=== PATIENT | female | born 1965 | race Caucasian/White ===

== ENCOUNTER 2018-01-04 15:19 | Emergency (ER) | payer MEDICAID, SELFPAY ==
[2018-01-04 15:20] VITALS: BP 101/66; PULSE 62; RESP 18; TEMP 36.9; O2SAT 99; BMI 22.3
[2018-01-04 15:51] LABS: Bacteria 0 SEEN /hpf (None Seen); Mucous, Urine 0 SEEN /hpf (<or=2+); White Blood Cells 0 SEEN /hpf (0-5)
[2018-01-04 15:59] LABS: Color, Urine Yellow (Yellow); Glucose, Dipstick Normal (Normal); Ketone-Dipstick Negative (Negative); Leukocyte Esterase-Dipstick Negative /ul (Negative); Nitrite-Dipstick Negative (Negative); Occult Blood-Urine Negative /ul (Negative); Protein-Dipstick Negative (Negative); Urine Bilirubin Dipstick Negative (Negative); Urine Clarity Clear (Clear); Urine Urobilinogen 1 mg/dl (Normal)
[2018-01-04 16:18] LABS: Red Blood Cells-Urine 0-5 SEEN /hpf (0-5); Squamous Epithelial Cells - UA 0-5 SEEN /hpf (5-10)
--- NOTE | 2018-01-04 16:59 | CT_ITS ---
STUDY: CT ABDOMEN AND PELVIS WITHOUT CONTRAST REASON FOR EXAM: Female, 52 years old. Kidney stones, low back pain, increased urinary frequency. RADIATION DOSAGE (If Supplied By Facility): CTDIvol = ( 6.04 ) mGy, DLP = ( 271.8 ) mGycm TECHNIQUE: Transaxial images were obtained from the dome of the diaphragm to the symphysis pubis without oral contrast, and without intravenous contrast. Sagittal and coronal images were reconstructed. Individualized dose optimization techniques were used for this CT. COMPARISON: None. FINDINGS: Curvilinear scarring in the left lung base. The visualized portions of the heart are within normal limits. Stable well-defined 1.6 x 1.3 x 1.45 cm low-density consistent with a cyst in the anterior left lobe of the liver. 1.6 cm subcapsular hemangioma in the inferior right lobe liver is only faintly visualized on series 2 image 56. The portal vein diameter is 13.5 mm. The gallbladder is contracted. Normal spleen. Normal pancreas. Normal bilateral adrenal glands. Normal right kidney. Normal left kidney. No hydronephrosis. Normal visualized stomach. Normal small intestine. Normal colon. The appendix is visualized and appears normal. Normal abdominal aorta. Normal inferior vena cava. Normal retroperitoneum. Normal urinary bladder. There is absence of the uterus consistent with a prior hysterectomy. Grossly unremarkable adnexa. Normal abdominal wall. There is right-sided depression of superior L1 vertebral endplate, new since prior study. Mild L5-S1 degenerative disc disease and disc height narrowing unchanged. CT/Abdomen/Pelvis without Cont IMPRESSION: 1. Stable right hepatic subcapsular hemangioma and left hepatic cyst. 2. The bowel is unremarkable without signs of obstruction. The appendix is normal. 3. Prior hysterectomy. The visualized adnexa are grossly unremarkable. 4. No hydronephrosis. 5. Right-sided depression of the superior L1 vertebral endplate, new since previous exam. Electronically Signed: Chip Navas MD at 17:39 EST , Service support ,
--- NOTE | 2018-01-04 17:47 | ED.DCSUM_ITS ---
- ER Visit Summary Date of Service: 01/04/18 Chief Complaint: Flank pain History of Present Illness: The patient is a 52 F who notes a backache for the past week. She also notes some bladder spasms. She notes urinary frequency and a odor to her urine. No fevers. She states she has a history of kidney stones and this feels similar. She has had prior lithotripsy in the past. She is unsure of her urologist is but it is in [place]. Physical Examination: Afebrile vital signs are stable Gen: Well-nourished well-developed Head: Normocephalic atraumatic Eyes: Perrl EOMI ENT: TMs clear no rhinorrhea moist mucous membranes Neck: Supple no lymphadenopathy no JVD nontender CVS: Regular rate rhythm no murmurs normal S1-S2 Respiratory: No distress clear to auscultation bilaterally chest nontender Abdomen: Soft nontender nondistended normal bowel sounds no masses Back: Bilateral CVA tenderness Extremity: Nontender no edema Skin: Normal color no rash Neuro: alert orientated ?3 CN II-XII intact normal strength sensation reflexes gait cerebellar Psych: Normal affect normal mood Test Results: Urinalysis normal CT noncontrasted that showed obvious cause for the patient's pain Emergency Department Course and Treatment: Patient will be treated with Pyridium she will follow-up with her doctor return if worsening Impression: 1. Urinary frequency 2. Back pain This note was generated with [employer] dictation software. It may contain incorrect words, spelling, and punctuation that were not noted in review of the chart prior to signing ED Disposition - Plan for ED Patient: Disposition: Home or Assisted Living Chief Complaint: Flank Pain Instructions: ED Dysuria Uncertain Cause Prescriptions: Phenazopyridine HCl [Pyridium] 200 mg PO BID PRN PRN #9 tab PRN Reason: Pain Referrals: David Swift DO [Primary Care Provider] - 3-5 Days if not improving
[2018-01-04 18:07] VITALS: BP 105/51; PULSE 64; PULSE 65; RESP 14; O2SAT 99
== END 2018-01-04 18:08 | disposition home or self-care (01) ==
PROVIDERS: Emergency Provider Emergency Medicine; Family Provider Student in an Organized Health Care Education/Training Program; PCP Student in an Organized Health Care Education/Training Program
DX: R35.0 Frequency of micturition (principal); M54.9 Dorsalgia, unspecified; J45.909 Unspecified asthma, uncomplicated; Z87.442 Personal history of urinary calculi; Z79.51 Long term (current) use of inhaled steroids; Z79.891 Long term (current) use of opiate analgesic; Z79.899 Other long term (current) drug therapy
CPT/HCPCS: 74176; 81001; 99282

== ENCOUNTER 2018-12-08 13:05 | Emergency (ER) | payer BC, MEDICAID, SELFPAY ==
[2018-12-08 13:05] VITALS: BP 94/62; PULSE 69; RESP 14; TEMP 36.9; O2SAT 98; BMI 21.6
--- NOTE | 2018-12-08 15:09 | CT_ITS ---
STUDY: CT BRAIN WITHOUT CONTRAST REASON FOR EXAM: Female, 53 years old. Headaches and dizziness. Recent injury. RADIATION DOSAGE (If Supplied By Facility): CTDIvol = ( 44.99 ) mGy, DLP = ( 762.36 ) mGycm TECHNIQUE: Transaxial CT imaging of the brain was performed without administration of intravenous contrast material. Individualized dose optimization techniques were used for this CT. COMPARISON: None. FINDINGS: Normal soft tissue structures. Normal calvarium. Normal size ventricles and extra-axial spaces for the patient's age. Normal white matter tracts of the cerebral hemispheres. Normal basal ganglia and thalami. Normal brainstem. Normal cerebellum. There is no intracranial hemorrhage. There are no findings of an acute ischemic infarction. Normal visualized paranasal sinuses. CT/Brain/Head without Contrast IMPRESSION: Normal unenhanced CT scan of the brain. Electronically Signed: Matt Herrera MD at 15:43 EST , Service support ,
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
--- NOTE | 2018-12-08 16:15 | ED.DEP ---
ED Disposition - Plan for ED Patient: Instructions: ED Concussion Referrals: David Swift DO [Primary Care Provider] -
[2018-12-08 16:23] VITALS: BP 102/70; PULSE 72; RESP 14; O2SAT 97
== END 2018-12-08 16:25 | disposition home or self-care (01) ==
LOC: ED 15:15
PROVIDERS: Emergency Provider Emergency Medicine; Family Provider Student in an Organized Health Care Education/Training Program; PCP Student in an Organized Health Care Education/Training Program
DX: S09.90XA Unspecified injury of head, initial encounter (principal); Z87.442 Personal history of urinary calculi; W22.09XA Striking against other stationary object, initial encounter; Y93.89 Activity, other specified; Y92.89 Other specified places as the place of occurrence of the external cause; Y99.8 Other external cause status
CPT/HCPCS: 70450; 99282

== ENCOUNTER 2019-03-09 19:45 | Emergency (ER) | payer MEDICAID, SELFPAY ==
[2019-03-09 19:46] VITALS: BP 100/59; PULSE 75; RESP 16; TEMP 36.2; O2SAT 97; BMI 21.6
--- NOTE | 2019-03-09 20:49 | ED.VISSUMM ---
- ER Visit Summary Date of Service: 03/09/19 Chief Complaint: Neck pain History of Present Illness: The patient is a 53 F presenting with right-sided neck pain. She states this has been ongoing for the past 3 months. She was seen by her primary care physician who referred her to ENT. They started on Flonase for possible sinus disease. She has a follow-up appointment with the ENT on March 22 and with her primary care physician in May. She has been taking ibuprofen and [place] as needed. She complains of continued pain posterior right neck. Denies fever or other complaints. Physical Examination: Vitals are stable. Patient is afebrile. Alert no acute distress. HEENT exam is unremarkable. TMs normal. Neck is supple. No meningismus. Right paraspinal cervical muscle tenderness, no midline tenderness Lungs are clear and equal bilaterally. Heart is regular rate and rhythm. Abdomen is soft nontender nondistended. Extremities are unremarkable. Skin is warm and dry. No focal neurologic deficit. Normal strength and sensation Remainder of exam is unremarkable. Emergency Department Course and Treatment: Patient was given Toradol IM. She is advised to follow-up with her primary care physician. Advised return to ED if worsening symptoms. Disposition: Discharge home Impression: Acute on chronic neck pain This note was generated with [employer] dictation software. It may contain incorrect words, spelling, and punctuation that were not noted in review of the chart prior to signing ED Disposition - Plan for ED Patient: Referrals: David Swift DO [Primary Care Provider] -
--- NOTE | 2019-03-09 20:51 | ED.DEP ---
ED Disposition - Plan for ED Patient: Instructions: ED Neck Back Pain General Referrals: David Swift DO [Primary Care Provider] -
[2019-03-09] MEDS: Ketorolac 60 MG/2 ML Vial IM (21:08)
[2019-03-09 21:11] VITALS: PULSE 60; RESP 14; O2SAT 97
== END 2019-03-09 21:30 | disposition home or self-care (01) ==
LOC: ED 20:47
PROVIDERS: Emergency Provider Emergency Medicine; Family Provider Student in an Organized Health Care Education/Training Program; PCP Student in an Organized Health Care Education/Training Program
DX: M54.2 Cervicalgia (principal); G89.29 Other chronic pain; J45.909 Unspecified asthma, uncomplicated; Z87.442 Personal history of urinary calculi; Z72.0 Tobacco use
CPT/HCPCS: 96372; 99283

== ENCOUNTER 2020-04-10 23:17 | Emergency (ER) | payer MEDICAID, SELFPAY ==
[2020-04-10 23:17] VITALS: BP 122/64; PULSE 71; RESP 16; TEMP 36.4; O2SAT 98; BMI 21.3
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
[2020-04-10] MEDS: Ketorolac 15 MG/ML Vial IM (23:33)
[2020-04-11 00:29] VITALS: BP 120/68; PULSE 79; RESP 18; O2SAT 97
== END 2020-04-11 00:30 | disposition home or self-care (01) ==
PROVIDERS: Emergency Provider Emergency Medicine; PCP Student in an Organized Health Care Education/Training Program
DX: S16.1XXA Strain of muscle, fascia and tendon at neck level, initial encounter (principal); S39.012A Strain of muscle, fascia and tendon of lower back, initial encounter; S13.4XXA Sprain of ligaments of cervical spine, initial encounter; V43.52XA Car driver injured in collision with other type car in traffic accident, initial encounter; Y93.9 Activity, unspecified; Y92.9 Unspecified place or not applicable; Y99.9 Unspecified external cause status; J45.909 Unspecified asthma, uncomplicated; Z79.899 Other long term (current) drug therapy; Z87.891 Personal history of nicotine dependence
CPT/HCPCS: 72040; 72100; 96372; 99282

== ENCOUNTER 2021-01-17 17:20 | Emergency (ER) | payer MEDICAID, SELFPAY ==
[2021-01-17 17:22] VITALS: BP 138/84; PULSE 70; RESP 19; TEMP 36.1; O2SAT 99; BMI 23.6
--- NOTE | 2021-01-17 17:37 | EKG12_ITS ---
Test Reason : CHEST PAIN Blood Pressure : / mmHG Vent. Rate : 054 BPM Atrial Rate : 054 BPM P-R Int : 144 ms QRS Dur : 082 ms QT Int : 442 ms P-R-T Axes : 048 -05 -09 degrees QTc Int : 419 ms Sinus bradycardia Otherwise normal ECG Confirmed by MINE NOEL, LASHANDA ([id number]), restaurant expeditor ROBI BUENO ([id number]) on 01/20/2021 10:53:03 A M Referred By: ML Confirmed By:MARCO ANTONIO BLOUNT MD
[2021-01-17 18:22] LABS: Absolute Lymphocyte Count 1.38 X10^3/uL (0.83-4.51); Absolute Neutrophil Count 2.9 X10^3/uL (2.0-7.7); Basophil# 0.02 X10^3/uL; Basophil% 0.4 % (0-1); Eosinophil# 0.12 X10^3/uL; Eosinophils% 2.5 % (0-5); Hematocrit 33.6 % (37-47); Lymphocyte # 1.38 X10^3/ul (4.0); Lymphocyte % 28.6 % (19-41); Mean Corp Hgb Conc 32.7 g/dL (32-36); Mean Corpuscular Hgb 30.4 pg (27.0-32.0); Mean Corpuscular Volume 92.8 fL (81-99); Mean Platelet Vol. 10.9 fl (6.2-12.0); Monocyte# 0.44 X10^3/uL; Monocyte% 9.1 % (0-10); NRBC Flagged by Analyzer 0 % (0-5); Neutrophil # 2.85 X10^3/uL (2.7-7.7); Platelet Count 259 K/mm3 (150-450); RBC Distribution Width CV 13.3 % (11.6-14.6); RBC Distribution Width SD 45.6 fl (35.1-43.9); Red Blood Count 3.62 M/mm3 (4.2-5.4); White Blood Count 4.8 K/mm3 (4.4-11.0)
[2021-01-17 18:36] LABS: D-Dimer Quantitative (DVT/PE) <= 0.27 FEU/ug/m (0.27-0.49)
[2021-01-17 18:38] VITALS: O2SAT 94
[2021-01-17 18:38] LABS: Anion Gap 3 (5-15); BUN 16 mg/dL (7-18); BUN/Creat Ratio 16.9 RATIO (10-20); Calcium,Total 8.9 mg/dL (8.5-10.1); Chloride 109 mmol/L (98-107); Creatinine, Serum 0.95 mg/dL (0.55-1.02); EST Glomerular Filtration Rate 66 mL/min (>60); Est Glom Filt Rate - Afr Amer 79 mL/min (>60); Estimated Creatinine Clearance 59.14 ml/min; Glucose 92 mg/dL (74-106); Potassium 3.6 mmol/L (3.5-5.1); Sodium Level 142 mmol/L (136-145)
--- NOTE | 2021-01-17 18:40 | RAD_ITS ---
STUDY: X-RAY CHEST REASON FOR EXAM: Female, 55 years old. Pain. TECHNIQUE: Single AP portable view of the chest. COMPARISON: None. FINDINGS: The lungs are clear and expanded. There is no demonstrated pleural abnormality. Normal size heart. Normal mediastinum and marga. Normal visualized pulmonary arteries. Normal visualized aortic arch and descending thoracic aorta. Normal visualized thoracic spine. Normal visualized ribs, clavicles, and shoulders. There is no demonstrated abnormality of the visualized soft tissue structures of the upper abdomen. RAD/Chest 1 View (Portable) IMPRESSION: Normal x-ray examination of the chest. Electronically Signed: Ramses Moon DO at 19:09 EDT Tel [phone], Service support ,
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
== END 2021-01-17 19:56 | disposition home or self-care (01) ==
PROVIDERS: Emergency Provider Emergency Medicine; PCP Student in an Organized Health Care Education/Training Program
DX: R07.9 Chest pain, unspecified (principal); J45.909 Unspecified asthma, uncomplicated
CPT/HCPCS: 71045; 80048; 84484; 85025; 85379; 93005; 99284; A4216

== ENCOUNTER 2021-11-16 12:41 | Emergency (ER) | payer MEDICAID, SELFPAY ==
[2021-11-16 12:42] VITALS: BP 111/79; PULSE 73; RESP 16; TEMP 36.4; O2SAT 98; BMI 22.8
--- NOTE | 2021-11-16 12:52 | EKG12_ITS ---
Test Reason : CP Blood Pressure : / mmHG Vent. Rate : 057 BPM Atrial Rate : 057 BPM P-R Int : 140 ms QRS Dur : 084 ms QT Int : 444 ms P-R-T Axes : 072 -15 011 degrees QTc Int : 432 ms Sinus bradycardia Nonspecific ST and T wave abnormality Abnormal ECG Confirmed by JULIUS NOEL, MARY ANN ([id number]), purchase request editor ROBI BUENO ([id number]) on 11/17/2021 1:08:39 PM Referred By: ALOK Confirmed By:MARY ANN MADRID MD
--- NOTE | 2021-11-16 13:01 | EX.ED.DYSGE1 ---
HPI History of Present Illness Chief Complaint: General Illness Narrative Narrative: 56-year-old female currently quarantine since with her son because he was positive for COVID-19 presenting with a migraine headache which she has history of. Patient states she tested positive for COVID-19 on Wednesday and now she is having migraine symptoms as well as body aches, chills. She states her lungs burning like she has pneumonia. She is not having pleuritic chest pain or heaviness. She is mildly nauseous with her headache but is able to eat and drink normally. She is making normal urine and stool. Patient was vaccinated for COVID-19. PFSH PFSH Home Medications albuterol sulfate [Ventolin Hfa] 2 puff INHALATION Q4H PRN PRN 08/07/13 [History Last Taken 12/28/15] Ibuprofen [Motrin] 600 mg PO TID PRN PRN 04/01/16 [History Last Taken Unknown] baclofen 10 mg PO DAILY PRN 08/06/16 [History Last Taken Unknown] hydrocodone-acetaminophen 1 - 2 tab PO Q4H PRN PRN #12 tablet 05/06/17 [Rx Last Taken Unknown] meloxicam 15 mg PO DAILY PRN 05/06/17 [History Last Taken Unknown] fluticasone propionate 2 spray NASAL DAILY 01/04/18 [History Last Taken 01/04/18] gabapentin 300 mg PO BIDCM PRN 01/04/18 [History Last Taken Unknown] lactase [Lactaid] 3,000 unit PO TID 01/04/18 [History Last Taken Unknown] montelukast 10 mg PO DAILY PRN 01/04/18 [History Last Taken 01/04/18] cholecalciferol (vitamin D3) 5,000 unit PO QWEEK 03/09/19 [History Last Taken Unknown] dicyclomine 20 mg PO ACHS PRN 01/17/21 [History Last Taken Unknown] fluoxetine 20 mg PO DAILY 01/17/21 [History Last Taken Unknown] mometasone-formoterol 1 puff IH BID 01/17/21 [History Last Taken Unknown] omeprazole 40 mg PO DAILY 01/17/21 [History Last Taken Unknown] tamsulosin 0.4 mg PO DAILY PRN 01/17/21 [History Last Taken Unknown] Allergy/AdvReac Type Severity Reaction Status Date / Time amoxicillin trihydrate Allergy Rash Verified 11/16/21 12:42 [From Augmentin] aspirin Allergy Hives Verified 11/16/21 12:42 bismuth subsalicylate Allergy Other Verified 11/16/21 12:42 buspirone Allergy Other Verified 11/16/21 12:42 coconut Allergy Anaphylaxis Verified 11/16/21 12:42 ondansetron Allergy Hives Verified 11/16/21 12:42 [From Zofran (as hydrochloride)] Penicillins [PCN] Allergy Hives Verified 11/16/21 12:42 potassium clavulanate Allergy Rash Verified 11/16/21 12:42 [From Augmentin] Sulfa (Sulfonamide Allergy Rash Verified 11/16/21 12:42 Antibiotics) tramadol Allergy Itching Verified 11/16/21 12:42 lactose AdvReac Upset Verified 11/16/21 12:42 Stomach Social History Smoking Status: Never smoker ROS ROS ED Constitutional Constitutional ED: Reports chills and subjective Eyes Eyes: Denies blurry vision or diplopia ENT ENT ED: Reports rhinorrhea; Denies ear pain Cardiovascular Cardiovascular: Denies chest pain or palpitations Respiratory/Chest Respiratory/Chest: Reports cough and dyspnea Gastrointestinal Gastrointestinal: Reports nausea; Denies abdominal pain or vomiting Genitourinary Genitourinary ED: Denies dysuria or hematuria Musculoskeletal Musculoskeletal: Reports myalgias; Denies arthralgias or neck pain Integumentary Denies Abrasions or rash Neurologic Neurologic: Reports headache(s); Denies paresthesias or weakness EXAM Physical Exam Const Vital Signs: 11/16/21 12:42 11/16/21 13:29 Temperature 97.5 F L Temperature Source Temporal Pulse Rate 73 Respiratory Rate 16 Respiratory Pattern Normal Blood Pressure 111/79 Blood Pressure Mean 89 Pulse Ox 98 Oxygen Delivery Method Room Air Positive well nourished General Appearance ED: NAD; Negative for pallor HEENT Reports moist mucous membranes Negative for trauma Eyes PERRL and EOMs intact bilaterally Chest Wall inspection of chest normal and palpation of chest normal Resp normal respiratory effort and clear to auscultation bilaterally Cardio regular rhythm Rate: bradycardia Extremity General Extremety ED: Negative for edema or tenderness General Extremity: Negative for edema Neuro oriented x3 and CN's II-XII intact bilaterally Sensorium / Orientation: alert Psych mental status grossly normal Skin no rashes or lesions noted General Skin Exam: Negative for jaundice or pallor MDM MDM MDM Narrative Medical decision making narrative: Patient presenting with COVID-19 symptoms. She states she has developed a migraine headache in addition to feeling achy. Her lungs are clear to auscultation. She is 98% on room air with a respiratory rate of 16. Pulse is actually bradycardic currently. Her EKG was performed by protocol and shows a sinus bradycardia on my interpretation with a ventricular rate of 57 bpm without sign of ischemic change. Patient stating that her lungs burn and she does not have any pleuritic chest pain or chest heaviness. She has no cardiac history. I do not believe she needs blood work. She does request a migraine cocktail for headache and she will be given Reglan, Benadryl for her headache. Patient reevaluated at 1450 and her headache is now significantly improved she feels well enough to go home. Patient will still need to quarantine because she has COVID-19, she is given return precautions. Impression: 1. COVID-19 2. Migraine Discharge Plan Triage Chief Complaint: General Illness ED Provider: Ed Alvarez Dx/Rx/DC Orders Instructions: Coronavirus Disease 2019 (COVID-19): Caring for Yourself or Others, ED, Migraine (Classical) Prescriptions: No Action albuterol sulfate [Ventolin HFA] 1 INHALER inhaler 2 puff inhalation Q4H PRN PRN (Reason: Wheezing) RF: 0 Ibuprofen [Motrin] 800 MG tablet 600 mg PO TID PRN PRN (Reason: Pain) RF: 0 baclofen 10 MG tablet 10 mg PO DAILY PRN (Reason: Pain) RF: 0 meloxicam 15 MG tablet 15 mg PO DAILY PRN (Reason: Pain) RF: 0 hydrocodone-acetaminophen 1 TABLET tablet 1 - 2 tab PO Q4H PRN PRN (Reason: Pain) Qty: 12 RF: 0 gabapentin 300 MG capsule 300 mg PO BIDCM PRN (Reason: Anxiety) RF: 0 fluticasone propionate 1 SPRAY Nasal.Sry 2 spray NASAL DAILY RF: 0 lactase [Lactaid] 3,000 UNIT tablet 3,000 unit PO TID RF: 0 montelukast 10 MG tablet 10 mg PO DAILY PRN (Reason: Allergies) RF: 0 cholecalciferol (vitamin D3) 5,000 UNIT capsule 5,000 unit PO QWEEK RF: 0 mometasone-formoterol 8.8 GM HFA aerosol inhaler 1 puff IH BID RF: 0 tamsulosin 0.4 MG capsule 0.4 mg PO DAILY PRN (Reason: .urinary symptoms) RF: 0 dicyclomine 10 MG capsule 20 mg PO ACHS PRN (Reason: Anxiety) RF: 0 omeprazole 20 MG capsule 40 mg PO DAILY RF: 0 fluoxetine 20 MG capsule 20 mg PO DAILY RF: 0 Primary Care Provider: David Swift Referrals: David Swift DO [Primary Care Provider] - Disposition Disposition: Home, Self Care
[2021-11-16] MEDS: Metoclopramide 10 MG/2 ML Vial IV (13:14)
[2021-11-16] MEDS: DiphenhydrAMINE 50 MG/ML Syringe 25 MG IV (13:14)
[2021-11-16 15:14] VITALS: O2SAT 92
== END 2021-11-16 15:15 | disposition home or self-care (01) ==
PROVIDERS: Emergency Provider Student in an Organized Health Care Education/Training Program; PCP Student in an Organized Health Care Education/Training Program; Visit Provider Student in an Organized Health Care Education/Training Program
DX: U07.1 COVID-19 (principal); G43.909 Migraine, unspecified, not intractable, without status migrainosus; R00.1 Bradycardia, unspecified
CPT/HCPCS: 93005; 96374; 96375; 99283; J7050; A4216

== ENCOUNTER 2022-01-17 15:07 | Emergency (ER) | payer MEDICAID, SELFPAY ==
[2022-01-17 15:08] VITALS: BP 97/72; PULSE 75; RESP 14; TEMP 35.6; O2SAT 98; BMI 23.6
--- NOTE | 2022-01-17 15:43 | EDS_ITS ---
HPI History of Present Illness Chief Complaint: Headache Narrative Narrative: 56-year-old female presenting with migraine. She is a history of migraine headaches. She states that she has light sensitivity and sound sensitivity. Patient also relates that she is currently being treated for a sinobronchitis with Levaquin. She is unsure if this is causing her to be more nauseous. She was told that she cannot mix her Levaquin with promethazine because of the interaction. She states that normally she can just take Phenergan and her symptoms will be better as far as her headache goes but since she cannot take this she continues to have headache. She does report a fever this week of 101 to 102 degrees. This is intermittent. Patient has cough as well. She does not feel short of breath. She does not have chest pain. She had COVID-19 in November and does not think she has it again. She does not want to be tested for it. [facility] Medical History Asthma Depression Hyperlipidemia Kidney stones Home Medications albuterol sulfate [Ventolin Hfa] 2 puff INHALATION Q4H PRN PRN 08/07/13 [History Last Taken 12/28/15] Ibuprofen [Motrin] 600 mg PO TID PRN PRN 04/01/16 [History Last Taken Unknown] baclofen 10 mg PO DAILY PRN 08/06/16 [History Last Taken Unknown] hydrocodone-acetaminophen 1 - 2 tab PO Q4H PRN PRN #12 tablet 05/06/17 [Rx Last Taken Unknown] meloxicam 15 mg PO DAILY PRN 05/06/17 [History Last Taken Unknown] fluticasone propionate 2 spray NASAL DAILY 01/04/18 [History Last Taken 01/04/18] gabapentin 900 mg PO QHS 01/04/18 [History Last Taken Unknown] lactase [Lactaid] 3,000 unit PO TID 01/04/18 [History Last Taken Unknown] montelukast 10 mg PO DAILY PRN 01/04/18 [History Last Taken 01/04/18] cholecalciferol (vitamin D3) 5,000 unit PO QWEEK 03/09/19 [History Last Taken Unknown] dicyclomine 20 mg PO ACHS PRN 01/17/21 [History Last Taken Unknown] fluoxetine 20 mg PO DAILY 01/17/21 [History Last Taken Unknown] mometasone-formoterol 1 puff IH BID 01/17/21 [History Last Taken Unknown] omeprazole 40 mg PO DAILY 01/17/21 [History Last Taken Unknown] tamsulosin 0.4 mg PO DAILY PRN 01/17/21 [History Last Taken Unknown] gabapentin 100 - 200 mg PO DAILY 01/17/22 [History Last Taken Unknown] Allergy/AdvReac Type Severity Reaction Status Date / Time amoxicillin trihydrate Allergy Rash Verified 01/17/22 15:08 [From Augmentin] aspirin Allergy Hives Verified 01/17/22 15:08 bismuth subsalicylate Allergy Other Verified 01/17/22 15:08 buspirone Allergy Other Verified 01/17/22 15:08 coconut Allergy Anaphylaxis Verified 01/17/22 15:08 ondansetron Allergy Hives Verified 01/17/22 15:08 [From Zofran (as hydrochloride)] Penicillins [PCN] Allergy Hives Verified 01/17/22 15:08 potassium clavulanate Allergy Rash Verified 01/17/22 15:08 [From Augmentin] Sulfa (Sulfonamide Allergy Rash Verified 01/17/22 15:08 Antibiotics) tramadol Allergy Itching Verified 01/17/22 15:08 lactose AdvReac Upset Verified 01/17/22 15:08 Stomach Surgical History History of appendectomy Social History Smoking Status: Never smoker ROS ROS ED Constitutional Constitutional ED: Denies chills or fever(s) Eyes Eyes: Denies blurry vision or diplopia ENT ENT ED: Denies rhinorrhea or sore throat Cardiovascular Cardiovascular: Denies chest pain or palpitations Respiratory/Chest Respiratory/Chest: Denies cough or dyspnea Gastrointestinal Gastrointestinal: Reports nausea and vomiting Genitourinary Genitourinary ED: Denies dysuria or hematuria Musculoskeletal Musculoskeletal: Denies arthralgias or myalgias Integumentary Denies rash Neurologic Neurologic: Reports headache(s); Denies paresthesias or weakness Psychiatric Psychiatric: Denies anxiety or depression EXAM Physical Exam Const Vital Signs: 01/17/22 15:08 Temperature 96.1 F L Temperature Source Temporal Pulse Rate 75 Respiratory Rate 14 Blood Pressure 97/72 Blood Pressure Mean 80 Pulse Ox 98 Oxygen Delivery Method Room Air Positive well nourished General Appearance ED: NAD; Negative for pallor HEENT Reports normocephalic atraumatic Eyes PERRL Neck no lymphadenopathy, supple and no meningeal signs Resp normal respiratory effort and clear to auscultation bilaterally Cardio regular rate and regular rhythm Neuro CN's II-XII intact bilaterally and no sensory deficits noted Sensorium / Orientation: awake and alert Motor Exam: strength 5/5 throughout Psych mental status grossly normal Skin General Skin Exam: Negative for jaundice or pallor Lesions: no lesions Rashes: no rashes MDM MDM MDM Narrative Medical decision making narrative: Patient not tested for Covid even though she has a history of fever. She does not have any neck pain. No meningeal signs. I feel this is reasonable. Her vital signs are stable and she is afebrile currently. She request to be treated for migraine and was given Reglan and Benadryl with good relief of her pain. On reevaluation she is feeling much better wants to be discharged home. Patient counseled Tylenol and ibuprofen alternating doses for fever she is given return precautions. She wants to cont inue her Levaquin and hold her Phenergan for now. Is unclear if the medication is causing her nausea or her migraine but she feels currently improved. Impression: 1. Viral syndrome 2. Migraine Lab Data Attestation: I reviewed the patient's lab results. Discharge Plan Triage Chief Complaint: Headache Other Complaint: Back ED Provider: Ed Alvarez Dx/Rx/DC Orders Instructions: ED, Migraine (Classical), ED Viral Syndrome (Adult) Prescriptions: No Action albuterol sulfate [Ventolin HFA] 1 INHALER inhaler 2 puff inhalation Q4H PRN PRN (Reason: Wheezing) RF: 0 Ibuprofen [Motrin] 800 MG tablet 600 mg PO TID PRN PRN (Reason: Pain) RF: 0 baclofen 10 MG tablet 10 mg PO DAILY PRN (Reason: Pain) RF: 0 meloxicam 15 MG tablet 15 mg PO DAILY PRN (Reason: Pain) RF: 0 hydrocodone-acetaminophen 1 TABLET tablet 1 - 2 tab PO Q4H PRN PRN (Reason: Pain) Qty: 12 RF: 0 gabapentin 300 MG capsule 900 mg PO QHS RF: 0 fluticasone propionate 1 SPRAY spray,suspension 2 spray NASAL DAILY RF: 0 lactase [Lactaid] 3,000 UNIT tablet 3,000 unit PO TID RF: 0 montelukast 10 MG tablet 10 mg PO DAILY PRN (Reason: Allergies) RF: 0 cholecalciferol (vitamin D3) 5,000 UNIT capsule 5,000 unit PO QWEEK RF: 0 mometasone-formoterol 8.8 GM HFA aerosol inhaler 1 puff IH BID RF: 0 tamsulosin 0.4 MG capsule 0.4 mg PO DAILY PRN (Reason: .urinary symptoms) RF: 0 dicyclomine 10 MG capsule 20 mg PO ACHS PRN (Reason: Anxiety) RF: 0 omeprazole 20 MG capsule 40 mg PO DAILY RF: 0 fluoxetine 20 MG capsule 20 mg PO DAILY RF: 0 gabapentin 100 mg capsule 100 - 200 mg PO DAILY RF: 0 Primary Care Provider: David Swift Referrals: David Swift DO [Primary Care Provider] - Disposition Disposition: Home, Self Care
[2022-01-17] MEDS: 0.9% Normal Saline 1,000 ML 999 ML IV (15:50)
[2022-01-17] MEDS: Metoclopramide 10 MG/2 ML Vial IV (15:50)
[2022-01-17] MEDS: DiphenhydrAMINE 50 MG/ML Syringe 25 MG IV (15:50)
[2022-01-17 17:02] VITALS: PULSE 90; RESP 15; O2SAT 98
== END 2022-01-17 17:03 | disposition home or self-care (01) ==
PROVIDERS: Emergency Provider Student in an Organized Health Care Education/Training Program; PCP Student in an Organized Health Care Education/Training Program; Visit Provider Student in an Organized Health Care Education/Training Program
DX: B34.9 Viral infection, unspecified (principal); G43.909 Migraine, unspecified, not intractable, without status migrainosus; J45.909 Unspecified asthma, uncomplicated; Z86.16 Personal history of COVID-19; Z79.899 Other long term (current) drug therapy
CPT/HCPCS: 96374; 96375; 99283; J7030; A4216

== ENCOUNTER 2023-04-01 21:29 | Emergency (ER) | payer MEDICAID, SELFPAY ==
[2023-04-01 21:30] VITALS: BP 113/64; PULSE 74; RESP 19; TEMP 36.4; O2SAT 98; BMI 24.3
[2023-04-01 22:36] VITALS: BP 118/73; PULSE 64; RESP 16; O2SAT 97
[2023-04-01 22:41] VITALS: O2SAT 97
--- NOTE | 2023-04-01 23:19 | ED.VIS.DYS ---
HPI History of Present Illness Chief Complaint: Shortness of Breath Detail of Chief Complaint: Shortness of breath Informant: patient Narrative Narrative: Patient presents with cough and shortness of breath x2 weeks. Patient states that her albuterol nebulizers are not working. Patient feels some chest tightness and her bronchioles anteriorly. Cough mostly nonproductive. She has had no fever. She complains of chest soreness from the cough. No heart history. She does complain of exertional dyspnea. She denies recent travel or surgery or history of PE or DVT. [facility] Medical History (Updated 04/02/23 @ 01:[address] Ty Hussein, DO) Asthma Bronchitis Chronic pneumonia Depression Hyperlipidemia Kidney stones Migraines Osteoporosis Sleep apnea Home Medications albuterol sulfate 90 mcg/actuation aerosol inhaler (Ventolin HFA) 2 puff inhalation Q4H PRN PRN Wheezing 08/07/13 [History Last Taken 12/28/15] Ibuprofen [Motrin] 600 mg PO TID PRN PRN Pain 04/01/16 [History Last Taken Unknown] baclofen 10 mg tablet 10 mg PO DAILY PRN Pain 08/06/16 [History Last Taken Unknown] hydrocodone-acetaminophen 5-325mg 5mg-325mg 1 - 2 tab PO Q4H PRN PRN Pain ##12 05/06/17 [Rx Last Taken Unknown] meloxicam 15 mg tablet 15 mg PO DAILY 05/06/17 [History Last Taken Unknown] fluticasone propionate 50 mcg/actuation nasal spray,suspension 2 spray DAILY 01/04/18 [History Last Taken 01/04/18] gabapentin 300 mg capsule 900 mg PO QHS 01/04/18 [History Last Taken Unknown] lactase 3,000 unit tablet (Lactaid) 3,000 unit PO TID 01/04/18 [History Last Taken Unknown] montelukast 10 mg tablet 10 mg PO DAILY PRN Allergies 01/04/18 [History Last Taken 01/04/18] cholecalciferol (vitamin D3) 125 mcg (5,000 unit) capsule 5,000 unit PO QWEEK 03/09/19 [History Last Taken Unknown] dicyclomine 10 mg capsule 20 mg PO ACHS PRN Anxiety 01/17/21 [History Last Taken Unknown] fluoxetine 20 mg capsule 20 mg PO DAILY 01/17/21 [History Last Taken Unknown] mometasone-formoterol HFA 100 mcg-5 mcg/actuation aerosol inhaler 1 puff IH BID 01/17/21 [History Last Taken Unknown] omeprazole 20 mg capsule,delayed release 40 mg PO DAILY 01/17/21 [History Last Taken Unknown] tamsulosin 0.4 mg capsule 0.4 mg PO DAILY PRN .urinary symptoms 01/17/21 [History Last Taken Unknown] gabapentin 100 mg capsule 100 - 200 mg PO DAILY 01/17/22 [History Last Taken Unknown] mometasone-formoterol HFA 100 mcg-5 mcg/actuation aerosol inhaler (Dulera) 200 inhalation BID 04/01/23 [History Last Taken Unknown] doxycycline monohydrate 100 mg capsule 100 mg PO BID #20 CAPSULES 04/02/23 [Rx Last Taken Unknown] prednisone 20 mg tablet 20 mg PO BID #10 tabs 04/02/23 [Rx Last Taken Unknown] Allergy/AdvReac Type Severity Reaction Status Date / Time amoxicillin trihydrate Allergy Rash Verified 04/01/23 21:30 [From Augmentin] aspirin Allergy Hives Verified 04/01/23 21:30 bismuth subsalicylate Allergy Other Verified 04/01/23 21:30 buspirone Allergy Other Verified 04/01/23 21:30 coconut Allergy Anaphylaxis Verified 04/01/23 21:30 ondansetron Allergy Hives Verified 04/01/23 21:30 [From Zofran (as hydrochloride)] Penicillins [PCN] Allergy Hives Verified 04/01/23 21:30 potassium clavulanate Allergy Rash Verified 04/01/23 21:30 [From Augmentin] Sulfa (Sulfonamide Allergy Rash Verified 04/01/23 21:30 Antibiotics) tramadol Allergy Itching Verified 04/01/23 21:30 lactose AdvReac Upset Verified 04/01/23 21:30 Stomach Surgical History History of appendectomy Social History Smoking Status: Never smoker ROS ROS ED Review of Systems ROS Unobtainable: other Constitutional Constitutional ED: Reports lethargy; Denies chills, fever(s), sweats or weight loss Eyes Eyes: Denies blurry vision, change in vision or diplopia ENT ENT ED: Denies rhinorrhea or sore throat Cardiovascular Cardiovascular: Denies chest pain, orthopnea or racing heartbeat Respiratory/Chest Respiratory/Chest: Reports cough, dyspnea and dyspnea on exertion; Denies orthopnea or sputum Gastrointestinal Gastrointestinal: Denies abdominal pain, diarrhea, nausea or vomiting Genitourinary Genitourinary ED: Denies dysuria, hematuria or urinary frequency Musculoskeletal Musculoskeletal: Denies arthralgias, back pain, myalgias or neck pain Integumentary Denies abscess, Abrasions or rash Neurologic Neurologic: Denies headache(s) or weakness Psychiatric Psychiatric: Denies anxiety, depression or suicidal thoughts Endocrine Endocrinology: Denies polydipsia, polyphagia or polyuria Hematologic/Lymphatic Hematologic/Lymphatic: Denies easy bleeding, easy bruising or lymphadenopathy Allergic/Immunologic Allergic/Immunologic ED: Denies mouth swelling, tongue swelling or urticaria EXAM Physical Exam Const Vital Signs: 04/01/23 21:30 04/01/23 22:36 04/01/23 22:41 Temperature 97.6 F L Temperature Source Temporal Pulse Rate 74 64 Respiratory Rate 19 H 16 Respiratory Effort Non-Labored Respiratory Depth Normal Respiratory Pattern Normal Blood Pressure 113/64 118/73 Blood Pressure Mean 80 88 Pulse Ox 98 97 Oxygen Delivery Method Room Air Room Air Room Air 04/01/23 23:31 Temperature Temperature Source Pulse Rate 86 Respiratory Rate 18 Respiratory Effort Respiratory Depth Respiratory Pattern Normal Blood Pressure Blood Pressure Mean Pulse Ox Oxygen Delivery Method Positive well nourished and well developed General Appearance ED: well developed and NAD HEENT Reports TM's clear and moist mucous membranes normocephalic and atraumatic; Negative for trauma or tenderness Tympanic Membrane ED: Yes TM's clear Eyes PERRL and EOMs intact bilaterally General Eye ED: Negative for pale conjunctiva or scleral icterus Neck no lymphadenopathy, supple and no JVD General: Negative for tenderness Chest Wall inspection of chest normal and palpation of chest normal Chest: Negative for tenderness Resp normal respiratory effort and clear to auscultation bilaterally Effort and Inspection: Negative for respiratory distress or pain with movement Auscultation: Negative for rhonchi, wheezes or diminished lung sounds Cardio regular rate, regular rhythm, S1 normal heart sound, S2 normal heart sound and no murmurs Peripheral Pulses: pulses 2+ throughout GI normal to inspection, nondistended, normoactive bowel sounds, soft to palpation, non-tender, non-distended and no masses Back/Spine no CVA tenderness and no thoracic nor lumbar tenderness Extremity normal to inspection General Extremety ED: Negative for edema General Extremity: Negative for edema Neuro oriented x3, CN's II-XII intact bilaterally, no sensory deficits noted and gait normal Sensorium / Orientation: awake, alert, oriented to person, oriented to place and oriented to time Motor Exam: strength 5/5 throughout and strength abnormal Psych mental status grossly normal Skin no rashes or lesions noted and no wounds MDM MDM MDM Narrative Medical decision making narrative: Patient presents with cough and shortness of breath for 2 weeks. History of COPD. In the differential would be infectious etiology versus PE versus acute coronary syndrome. Feel acute coronary syndrome would be less likely. Patient had an IV line established on arrival. She was placed on a athletic monitor. EKG obtained showed a sinus rhythm with a rate of [address] changes. When compared with prior EKG no significant changes noted. CBC with differential showed a normal white count of 6.8 with hemoglobin 11.6. D-dimer is normal 0.33. Chemistries unremarkable other than a slightly depressed potassium of 2.9 for which I did order 40 mEq of potassium chloride p.o. Patient had a troponin that was normal at 5. Chest x-ray showed nothing acute. This point suspect possibly COPD exacerbation. Patient will did receive a DuoNeb aerosol and did feel improved after. She will be treated with doxycycline and prednisone. 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 Lab Data Attestation: I reviewed the patient's lab results. Labs: Laboratory Results - last 24 hr 04/01/23 04/01/23 04/01/23 23:57 23:57 23:57 WBC 6.8 RBC 3.92 L Hgb 11.6 L Hct 35.9 L MCV 91.6 MCH 29.6 MCHC 32.3 RDW Std Deviation 45.2 H RDW Coeff of Juanita 13.4 Plt Count 223 MPV 11.2 Immature Gran % (Auto) 0.100 Neut % (Auto) 43.9 L Lymph % (Auto) 42.6 H [place] % (Auto) 9.2 Eos % (Auto) 3.8 Baso % (Auto) 0.4 Absolute Neuts (auto) 3.0 Absolute Lymphs (auto) 2.88 Nucleated RBC % 0 D-Dimer Quant (PE/DVT) 0.33 Sodium 144 Potassium 2.9 L Chloride 110 H Carbon Dioxide 27.0 Anion Gap 7 BUN 16 Creatinine 0.90 Estim Creat Clear Calc 63.55 Est GFR (MDRD) Af Amer 83 Est GFR (MDRD) Non-Af 69 BUN/Creatinine Ratio 17.8 Glucose 122 H Calcium 8.9 Troponin I High Sens 5 Radiography Diagnostic Testing: Clinical Impression(s) from Imaging Studies Chest X-Ray 04/01/23 23:42 IMPRESSION: Mild COPD Electronically Signed: Gonzalez Ledesma MD at 0:02 EDT , 1 view chest x-ray obtained interpreted by myself as no evidence of infiltrate or acute disease process. Radiology in agreement and they did note COPD changes. EKG Initial EKG: Attestation: I personally reviewed and interpreted this EKG as follows: Comments: Sinus rhythm with a rate of [address] changes Prior EKG tracings: available for review Prior: Unchanged Discharge Plan Triage Chief Complaint: Shortness of Breath ED Provider: Ty Hussein Dx/Rx/DC Orders Clinical Impression: COPD exacerbation Instructions: ED COPD Flare Prescriptions: New doxycycline monohydrate 100 mg capsule 100 mg PO BID Qty: 20 0RF prednisone 20 mg tablet 20 mg PO BID Qty: 10 0RF No Action albuterol sulfate [Ventolin HFA] 1 INHALER inhaler 2 puff inhalation Q4H PRN PRN (Reason: Wheezing) Ibuprofen [Motrin] 800 MG tablet 600 mg PO TID PRN PRN (Reason: Pain) baclofen 10 MG tablet 10 mg PO DAILY PRN (Reason: Pain) meloxicam 15 MG tablet 15 mg PO DAILY Label Comments: hydrocodone-acetaminophen 1 TABLET tablet 1 - 2 tab PO Q4H PRN PRN (Reason: Pain) Qty: 12 0RF gabapentin 300 MG capsule 900 mg PO QHS fluticasone propionate 1 SPRAY spray,suspension 2 spray NASAL DAILY lactase [Lactaid] 3,000 UNIT tablet 3,000 unit PO TID Label Comments: TAKE WITH ANY DAIRY PRODUCT. montelukast 10 MG tablet 10 mg PO DAILY PRN (Reason: Allergies) cholecalciferol (vitamin D3) 5,000 UNIT capsule 5,000 unit PO QWEEK mometasone-formoterol 8.8 GM HFA aerosol inhaler 1 puff IH BID tamsulosin 0.4 MG capsule 0.4 mg PO DAILY PRN (Reason: .urinary symptoms) dicyclomine 10 MG capsule 20 mg PO ACHS PRN (Reason: Anxiety) omeprazole 20 MG capsule 40 mg PO DAILY fluoxetine 20 MG capsule 20 mg PO DAILY gabapentin 100 mg capsule 100 - 200 mg PO DAILY Label Comments: TAKE 1 CAPSULE BY MOUTH IN THE MORNING AND 2 IN THE AFTERNOON Dulera 100-5 mcg/actuation HFA aerosol inhaler 200 INHALATION BID Label Comments: INHALE 2 PUFFS BY MOUTH INSTRUCTED TWICE DAILY Primary Care Provider: David Swift Referrals: David Swift DO [Primary Care Provider] - 3-5 Days Activity Restrictions/Additional Instructions: Keep your appointment with your filling station equipment mechanic. Disposition Disposition: Home, Self Care
[2023-04-01 23:31] VITALS: PULSE 86; RESP 18
[2023-04-01] MEDS: Ipratropium/Albuterol Sulfate 3 ML AMPUL.NEB INHALATION (23:31)
--- NOTE | 2023-04-01 23:42 | RAD_ITS ---
INDICATION: cough EXAMINATION/TECHNIQUE: X-RAY - XR Chest 1 View COMPARISON: Chest x-ray from 01/17/2021 FINDINGS: LINES/DEVICES: None. LUNGS: Slightly hyperexpanded lungs again noted. No pulmonary edema or focal airspace consolidation. No sizable pleural effusion. No pneumothorax detected. MEDIASTINUM AND CARDIOVASCULAR STRUCTURES: Heart size within normal limits. Mediastinal contours unremarkable. BONES AND SOFT TISSUES: No acute findings. RAD/Chest 1 View (Portable) IMPRESSION: Mild COPD Electronically Signed: Gonzalez Ledesma MD at 0:02 EDT ,
[2023-04-02 00:22] LABS: Absolute Lymphocyte Count 2.88 X10^3/uL (0.83-4.51); Basophil# 0.03 X10^3/uL; Basophil% 0.4 % (0-1); Eosinophil# 0.26 X10^3/uL; Eosinophils% 3.8 % (0-5); Hematocrit 35.9 % (37-47); Hemoglobin 11.6 g/dL (12.0-15.0); Lymphocyte # 2.88 X10^3/ul (0.83-4.51); Lymphocyte % 42.6 % (19-41); Mean Corp Hgb Conc 32.3 g/dL (32-36); Mean Corpuscular Hgb 29.6 pg (27.0-32.0); Mean Corpuscular Volume 91.6 fL (81-99); Mean Platelet Vol. 11.2 fl (6.2-12.0); Monocyte# 0.62 X10^3/uL; Monocyte% 9.2 % (0-10); NRBC Flagged by Analyzer 0 % (0-5); Neutrophil # 2.96 X10^3/uL (2.7-7.7); Neutrophil % 43.9 % (47-70); Platelet Count 223 K/mm3 (150-450); RBC Distribution Width CV 13.4 % (11.6-14.6); RBC Distribution Width SD 45.2 fl (35.1-43.9); Red Blood Count 3.92 M/mm3 (4.2-5.4); White Blood Count 6.8 K/mm3 (4.4-11.0)
[2023-04-02 00:25] LABS: D-Dimer Quantitative (DVT/PE) 0.33 FEU/ug/m (0.27-0.49)
[2023-04-02] MEDS: 0.9% Normal Saline 1,000 ML 150 ML IV (00:26)
[2023-04-02 00:52] LABS: Anion Gap 7 (5-15); BUN 16 mg/dL (7-18); BUN/Creat Ratio 17.8 RATIO (10-20); Calcium,Total 8.9 mg/dL (8.5-10.1); Chloride 110 mmol/L (98-107); EST Glomerular Filtration Rate 69 mL/min (>60); Est Glom Filt Rate - Afr Amer 83 mL/min (>60); Estimated Creatinine Clearance 63.55 ml/min; Glucose 122 mg/dL (74-106); Potassium 2.9 mmol/L (3.5-5.1); Sodium Level 144 mmol/L (136-145); Troponin-I HS 5 pg/mL (3.0-54.0)
[2023-04-02] MEDS: Potassium Chloride Oral Tablet 20 MEQ 40 MEQ PO (01:20)
[2023-04-02] MEDS: predniSONE 20 MG Tablet 40 MG PO (01:20)
[2023-04-02] MEDS: Doxycycline 100 MG CAPSULE PO (01:20)
[2023-04-02 01:22] VITALS: BP 109/71; PULSE 78; RESP 20; O2SAT 97
== END 2023-04-02 01:50 | disposition home or self-care (01) ==
PROVIDERS: Emergency Provider Emergency Medicine; PCP Student in an Organized Health Care Education/Training Program; Visit Provider Emergency Medicine
DX: J44.1 Chronic obstructive pulmonary disease with (acute) exacerbation (principal); E78.5 Hyperlipidemia, unspecified; F32.A Depression, unspecified; M81.0 Age-related osteoporosis without current pathological fracture; G47.30 Sleep apnea, unspecified
CPT/HCPCS: 71045; 80048; 84484; 85025; 85379; 87428; 93005; 94640; 96360; 96361; 99285; J7030; A4216

== ENCOUNTER 2023-07-27 22:58 | Emergency (ER) | payer MEDICAID, SELFPAY ==
[2023-07-27 22:58] VITALS: BP 109/71; PULSE 73; RESP 15; TEMP 36.3; O2SAT 98; BMI 24.3
--- NOTE | 2023-07-28 00:43 | RAD_ITS ---
INDICATION: pain EXAMINATION/TECHNIQUE: X-RAY - XR Spine Lumbar Min 4 Views COMPARISON: CR Lumbar SpineApr 10 2020 FINDINGS: VERTEBRAE: Preserved vertebral body height. No fracture. No spondylolisthesis. Preservation of the normal lumbar lordosis. No significant facet arthropathy. DISCS: Disc spaces are maintained. INCLUDED ABDOMEN: Included bowel gas pattern is non-obstructive. RAD/L/S Spine Min 4 Views IMPRESSION: No evidence of lumbar spinal fracture or spondylolisthesis. Electronically Signed: Shayna Calvillo MD at 1:02 EDT ,
--- NOTE | 2023-07-28 01:31 | EX.ED.DYSGE1 ---
HPI History of Present Illness Chief Complaint: Back Informant: patient Narrative Narrative: Patient is a 58-year-old female with past medical history of asthma and previous L1 fracture. She states approximately 12 to 16 hours ago she stepped approximately 1 foot off a trailer and at that time tweaked her back. She states that she has been taking her medication which is Mobic and gabapentin as well as baclofen with minimal symptom improvement. She denies any loss of bowel or bladder control or IV drug use but with persistent pain presents for evaluation. [facility] Medical History (Updated 07/28/23 @ 05:[address] Ricardo Looney, DO) Asthma Bronchitis Chronic pneumonia Depression Hyperlipidemia Kidney stones Migraines Osteoporosis Sleep apnea Home Medications albuterol sulfate 90 mcg/actuation aerosol inhaler (Ventolin HFA) 2 puff inhalation Q4H PRN PRN Wheezing 08/07/13 [History Last Taken 12/28/15] Ibuprofen [Motrin] 600 mg PO TID PRN PRN Pain 04/01/16 [History Last Taken Unknown] baclofen 10 mg tablet 10 mg PO DAILY PRN Pain 08/06/16 [History Last Taken Unknown] hydrocodone-acetaminophen 5-325mg 5mg-325mg 1 - 2 tab PO Q4H PRN PRN Pain ##12 05/06/17 [Rx Last Taken Unknown] meloxicam 15 mg tablet 15 mg PO DAILY 05/06/17 [History Last Taken Unknown] fluticasone propionate 50 mcg/actuation nasal spray,suspension 2 spray DAILY 01/04/18 [History Last Taken 01/04/18] gabapentin 300 mg capsule 900 mg PO QHS 01/04/18 [History Last Taken Unknown] lactase 3,000 unit tablet (Lactaid) 3,000 unit PO TID 01/04/18 [History Last Taken Unknown] montelukast 10 mg tablet 10 mg PO DAILY PRN Allergies 01/04/18 [History Last Taken 01/04/18] cholecalciferol (vitamin D3) 125 mcg (5,000 unit) capsule 5,000 unit PO QWEEK 03/09/19 [History Last Taken Unknown] dicyclomine 10 mg capsule 20 mg PO ACHS PRN Anxiety 01/17/21 [History Last Taken Unknown] fluoxetine 20 mg capsule 20 mg PO DAILY 01/17/21 [History Last Taken Unknown] mometasone-formoterol HFA 100 mcg-5 mcg/actuation aerosol inhaler 1 puff IH BID 01/17/21 [History Last Taken Unknown] omeprazole 20 mg capsule,delayed release 40 mg PO DAILY 01/17/21 [History Last Taken Unknown] tamsulosin 0.4 mg capsule 0.4 mg PO DAILY PRN .urinary symptoms 01/17/21 [History Last Taken Unknown] gabapentin 100 mg capsule 100 - 200 mg PO DAILY 01/17/22 [History Last Taken Unknown] mometasone-formoterol HFA 100 mcg-5 mcg/actuation aerosol inhaler (Dulera) 200 inhalation BID 04/01/23 [History Last Taken Unknown] doxycycline monohydrate 100 mg capsule 100 mg PO BID #20 CAPSULES 04/02/23 [Rx Last Taken Unknown] prednisone 20 mg tablet 20 mg PO BID #10 tabs 04/02/23 [Rx Last Taken Unknown] oxycodone-acetaminophen 5 mg-325 mg tablet (Percocet) 1 tab PO Q6H PRN pain 3 days #12 tabs 07/28/23 [Rx Last Taken Unknown] Allergy/AdvReac Type Severity Reaction Status Date / Time amoxicillin trihydrate Allergy Rash Verified 07/27/23 23:02 [From Augmentin] aspirin Allergy Hives Verified 07/27/23 23:02 bismuth subsalicylate Allergy Other Verified 07/27/23 23:02 buspirone Allergy Other Verified 07/27/23 23:02 coconut Allergy Anaphylaxis Verified 07/27/23 23:02 ondansetron Allergy Hives Verified 07/27/23 23:02 [From Zofran (as hydrochloride)] Penicillins [PCN] Allergy Hives Verified 07/27/23 23:02 potassium clavulanate Allergy Rash Verified 07/27/23 23:02 [From Augmentin] Sulfa (Sulfonamide Allergy Rash Verified 04/01/23 21:30 Antibiotics) tramadol Allergy Itching Verified 07/27/23 23:02 lactose AdvReac Upset Verified 07/27/23 23:02 Stomach Surgical History History of appendectomy Social History Smoking Status: Never smoker ROS ROS ED Constitutional Constitutional ED: Denies chills or fever(s) ENT ENT ED: Denies sore throat Cardiovascular Cardiovascular: Denies chest pain Respiratory/Chest Respiratory/Chest: Denies cough or dyspnea Gastrointestinal Gastrointestinal: Denies abdominal pain, diarrhea, nausea or vomiting Genitourinary Genitourinary ED: Denies dysuria or hematuria Musculoskeletal Musculoskeletal: Reports back pain Integumentary Denies rash Neurologic Neurologic: Denies headache(s) or paresthesias Hematologic/Lymphatic Hematologic/Lymphatic: Denies easy bleeding or easy bruising EXAM Physical Exam Const Vital Signs: 07/27/23 22:58 Temperature 97.4 F L Temperature Source Temporal Pulse Rate 73 Respiratory Rate 15 Blood Pressure 109/71 Blood Pressure Mean 83 Pulse Ox 98 Oxygen Delivery Method Room Air Positive well nourished and well developed General Appearance ED: well developed HEENT HEENT Narrative: Normocephalic atraumatic Eyes PERRL and EOMs intact bilaterally General Eye ED: Negative for scleral icterus Neck supple Resp normal respiratory effort and clear to auscultation bilaterally Cardio regular rate and regular rhythm Rate: other Other Details: Radial and carotid pulses equal and symmetric GI normal to inspection, nondistended, normoactive bowel sounds, non-tender, non-distended and no masses Auscultation: normoactive bowel sounds Palpation: soft Back/Spine Back/Spine Narrative: No bony deformity or step-off of the thoracic or lumbar spine. There is mild midline lower lumbar pain on palpation. However there is greater pain to the left paralumbar muscle belly region with mild spasm noted that worsens with extension and rotation. Negative straight leg raise. Negative clonus and Babinski. No saddle anesthesia. Patellar reflexes are plus 2 out of 4 bilaterally. Extremity normal to inspection Neuro oriented x3, CN's II-XII intact bilaterally and no sensory deficits noted Sensorium / Orientation: alert Psych mental status grossly normal Skin no rashes or lesions noted Skin Narrative: No overlying soft tissue changes to suggest trauma or infection MDM MDM MDM Narrative Medical decision making narrative: Patient presented to ER with stable vitals and denied any excessive activity or acute trauma. She also denied any loss of bowel or bladder control or IV drug use going against cauda equina or epidural abscess. Other differentials are for compression fracture versus spondylolisthesis versus lumbosacral strain. An x-ray was obtained the low back which revealed no acute fracture or spondylolisthesis. Patient is already on a neuromodulator anti-inflammatory and muscle relaxer and therefore the only thing left to add is pain control. Patient states that she has had Percocet in the past and done well and therefore should be given a short course of this. As there is no obvious signs or concerns for pyelonephritis cauda equina or epidural abscess and x-ray confirms no fracture there is no need for further work-up and patient is otherwise safe for discharge History & Record Review Discussion w/independent historian: Patient Radiography Diagnostic Testing: Clinical Impression(s) from Imaging Studies Lumbar Spine X-Ray 07/28/23 00:43 IMPRESSION: No evidence of lumbar spinal fracture or spondylolisthesis. Electronically Signed: Shayna Calvillo MD at 1:02 EDT , X-ray of the lumbar spine as interpreted by the emergency medicine physician reveals no acute compression fracture or spondylolisthesis Discharge Plan Triage Chief Complaint: Back ED Provider: Ricardo Looney Dx/Rx/DC Orders Clinical Impression: Acute lumbosacral myofascial strain, History of asthma, Depression Instructions: ED Back Sprain/Strain Prescriptions: New oxycodone-acetaminophen [Percocet] 5-325 mg tablet 1 tab PO Q6H PRN (Reason: pain) 3 Days Qty: 12 0RF No Action albuterol sulfate [Ventolin HFA] 1 INHALER inhaler 2 puff inhalation Q4H PRN PRN (Reason: Wheezing) Ibuprofen [Motrin] 800 MG tablet 600 mg PO TID PRN PRN (Reason: Pain) baclofen 10 MG tablet 10 mg PO DAILY PRN (Reason: Pain) meloxicam 15 MG tablet 15 mg PO DAILY Patient Comments: hydrocodone-acetaminophen 1 TABLET tablet 1 - 2 tab PO Q4H PRN PRN (Reason: Pain) Qty: 12 0RF gabapentin 300 MG capsule 900 mg PO QHS fluticasone propionate 1 SPRAY spray,suspension 2 spray NASAL DAILY lactase [Lactaid] 3,000 UNIT tablet 3,000 unit PO TID Patient Comments: TAKE WITH ANY DAIRY PRODUCT. montelukast 10 MG tablet 10 mg PO DAILY PRN (Reason: Allergies) cholecalciferol (vitamin D3) 5,000 UNIT capsule 5,000 unit PO QWEEK mometasone-formoterol 8.8 GM HFA aerosol inhaler 1 puff IH BID tamsulosin 0.4 MG capsule 0.4 mg PO DAILY PRN (Reason: .urinary symptoms) dicyclomine 10 MG capsule 20 mg PO ACHS PRN (Reason: Anxiety) omeprazole 20 MG capsule 40 mg PO DAILY fluoxetine 20 MG capsule 20 mg PO DAILY gabapentin 100 mg capsule 100 - 200 mg PO DAILY Patient Comments: TAKE 1 CAPSULE BY MOUTH IN THE MORNING AND 2 IN THE AFTERNOON Dulera 100-5 mcg/actuation HFA aerosol inhaler 200 INHALATION BID Patient Comments: INHALE 2 PUFFS BY MOUTH INSTRUCTED TWICE DAILY doxycycline monohydrate 100 mg capsule 100 mg PO BID Qty: 20 0RF prednisone 20 mg tablet 20 mg PO BID Qty: 10 0RF Primary Care Provider: David Swift Referrals: David Swift DO [Primary Care Provider] - Activity Restrictions/Additional Instructions: Your x-rays reveal no acute bony injury indicating this is muscular in nature. Continue to stretch and heat the area and continue all of your home medications and add the Percocet for improved pain control. Please return to the ER should you have any further concerns Disposition Disposition: Home, Self Care Discharge Date/Time: 07/28/23 01:35
== END 2023-07-28 01:35 | disposition home or self-care (01) ==
PROVIDERS: Emergency Provider Emergency Medicine; PCP Student in an Organized Health Care Education/Training Program; Visit Provider Emergency Medicine
DX: S39.012A Strain of muscle, fascia and tendon of lower back, initial encounter (principal); J45.909 Unspecified asthma, uncomplicated; F32.A Depression, unspecified; G47.30 Sleep apnea, unspecified; X58.XXXA Exposure to other specified factors, initial encounter
CPT/HCPCS: 72110; 99282

== ENCOUNTER 2023-12-23 15:21 | Emergency (ER) | payer MEDICAID, SELFPAY ==
[2023-12-23 15:22] VITALS: BP 127/84; PULSE 62; RESP 16; TEMP 37.1; O2SAT 98; BMI 24.6
[2023-12-23 15:24] VITALS: BP 127/84; PULSE 62; RESP 16; TEMP 37.1; O2SAT 98
--- NOTE | 2023-12-23 15:30 | CT_ITS ---
STUDY: CT ABDOMEN AND PELVIS WITHOUT CONTRAST REASON FOR EXAM: Female, 58 years old. Kidney Stone RADIATION DOSAGE (If Supplied By Facility): CTDIvol = ( 6.31 ) mGy, DLP = ( 305.84 ) mGycm TECHNIQUE: Transaxial images were obtained from the dome of the diaphragm to the symphysis pubis without oral contrast, and without intravenous contrast. Sagittal and coronal images were reconstructed. Individualized dose optimization techniques were used for this CT. COMPARISON: 12/30/2015. FINDINGS: The visualized lung bases are unremarkable. The visualized portions of the heart are within normal limits. Normal liver with stable incidental liver cysts. Normal gallbladder and extrahepatic biliary system. Normal spleen. Normal pancreas. Normal bilateral adrenal glands. Normal right kidney. Normal left kidney. No definite renal or ureteral stones are seen. There is no hydronephrosis on either side. Evaluation of the GI tract is limited by absence of oral contrast. Cannot exclude stomach wall thickening. No dilated loops of bowel or evidence for obstruction. Cannot exclude segmental thickening of the maria of the small or large bowel. Cannot exclude enteritis or colitis. Marked diffuse fecal retention. Diverticulosis without definite diverticulitis. Status post appendectomy. Normal abdominal aorta. Normal inferior vena cava. Normal retroperitoneum. Normal urinary bladder. There is absence of the uterus consistent with a prior hysterectomy. Normal abdominal wall. Partial compression fracture of L1 appears old but was not present previously 16, otherwise negative osseous structures. CT/Abdomen/Pelvis without Cont IMPRESSION: Fecal retention. No acute abnormality. No renal stones. Electronically Signed: Isai Merrill MD at 16:22 EST ,
--- NOTE | 2023-12-23 15:32 | EX.ED.DYSGE1 ---
HPI History of Present Illness Chief Complaint: Flank Pain Detail of Chief Complaint: Left flank pain radiating anteriorly Informant: patient Onset/Context/Timing Onset: Yesterday Context: Sudden Onset Timing: Intermittent and Waxes and wanes Quality: Like prior kidney stones Location: left flank radiating anteriorly Current Severity: Moderate Maximum Severity: Severe Worsened by: Coughing, which is chronic Relieved by: Nothing Associated Symptoms Associated Symptoms: Nausea frequency and urgency Narrative Narrative: Patient is a 58-year-old woman with history of 8 prior kidney stones. Last kidney stone was in 2017 and was 9 mm size. She was transferred to [facility] but at that time since there was no urology available. She presents because of left flank pain that has been intermittent. It feels like prior kidney stones. She does endorse nausea, urgency and frequency. She denies dysuria or hematuria. There is no history of trauma. She does endorse nausea without vomiting or diarrhea. She denies rash. Her allergies were reviewed. She is presently taking Mobic. She is able to take ibuprofen Aleve and has had Toradol in the past. Prior similar symptoms: Yes Recent Illness/Hospitalization: No PFSH PFSH Medical History Asthma Bronchitis Chronic pneumonia Depression Hyperlipidemia Kidney stones Migraines Osteoporosis Sleep apnea Home Medications albuterol sulfate 90 mcg/actuation aerosol inhaler (Ventolin HFA) 2 puff inhalation Q4H PRN PRN Wheezing 08/07/13 [History Last Taken 12/28/15] Ibuprofen [Motrin] 600 mg PO TID PRN PRN Pain 04/01/16 [History Last Taken Unknown] baclofen 10 mg tablet 10 mg PO DAILY PRN Pain 08/06/16 [History Last Taken Unknown] hydrocodone-acetaminophen 5-325mg 5mg-325mg 1 - 2 tab PO Q4H PRN PRN Pain ##12 05/06/17 [Rx Last Taken Unknown] meloxicam 15 mg tablet 15 mg PO DAILY 05/06/17 [History Last Taken Unknown] fluticasone propionate 50 mcg/actuation nasal spray,suspension 2 spray DAILY 01/04/18 [History Last Taken 01/04/18] gabapentin 300 mg capsule 900 mg PO QHS 01/04/18 [History Last Taken Unknown] lactase 3,000 unit tablet (Lactaid) 3,000 unit PO TID 01/04/18 [History Last Taken Unknown] montelukast 10 mg tablet 10 mg PO DAILY PRN Allergies 01/04/18 [History Last Taken 01/04/18] cholecalciferol (vitamin D3) 125 mcg (5,000 unit) capsule 5,000 unit PO QWEEK 03/09/19 [History Last Taken Unknown] dicyclomine 10 mg capsule 20 mg PO ACHS PRN Anxiety 01/17/21 [History Last Taken Unknown] fluoxetine 20 mg capsule 20 mg PO DAILY 01/17/21 [History Last Taken Unknown] mometasone-formoterol HFA 100 mcg-5 mcg/actuation aerosol inhaler 1 puff IH BID 01/17/21 [History Last Taken Unknown] omeprazole 20 mg capsule,delayed release 40 mg PO DAILY 01/17/21 [History Last Taken Unknown] tamsulosin 0.4 mg capsule 0.4 mg PO DAILY PRN .urinary symptoms 01/17/21 [History Last Taken Unknown] gabapentin 100 mg capsule 100 - 200 mg PO DAILY 01/17/22 [History Last Taken Unknown] mometasone-formoterol HFA 100 mcg-5 mcg/actuation aerosol inhaler (Dulera) 200 inhalation BID 04/01/23 [History Last Taken Unknown] doxycycline monohydrate 100 mg capsule 100 mg PO BID #20 CAPSULES 04/02/23 [Rx Last Taken Unknown] prednisone 20 mg tablet 20 mg PO BID #10 tabs 04/02/23 [Rx Last Taken Unknown] oxycodone-acetaminophen 5 mg-325 mg tablet (Percocet) 1 tab PO Q6H PRN pain 3 days #12 tabs 07/28/23 [Rx Last Taken Unknown] Allergy/AdvReac Type Severity Reaction Status Date / Time amoxicillin trihydrate Allergy Rash Verified 12/23/23 15:21 [From Augmentin] aspirin Allergy Hives Verified 12/23/23 15:21 bismuth subsalicylate Allergy Other Verified 12/23/23 15:21 buspirone Allergy Other Verified 12/23/23 15:21 coconut Allergy Anaphylaxis Verified 12/23/23 15:21 ondansetron Allergy Hives Verified 12/23/23 15:21 [From Zofran (as hydrochloride)] Penicillins [PCN] Allergy Hives Verified 12/23/23 15:21 potassium clavulanate Allergy Rash Verified 12/23/23 15:21 [From Augmentin] Sulfa (Sulfonamide Allergy Rash Verified 12/23/23 15:21 Antibiotics) tramadol Allergy Itching Verified 12/23/23 15:21 lactose AdvReac Upset Verified 12/23/23 15:21 Stomach Surgical History History of appendectomy Social History (Updated 12/23/23 @ 15:[address] Harshil Duran MD) household members: spouse Smoking Status: Former smoker substance use type: does not use ROS ROS ED Constitutional Constitutional ED: Denies chills, fever(s), subjective, sweats or weight loss Eyes Eyes: Denies blurry vision or change in vision Cardiovascular Cardiovascular: Denies chest pain, orthopnea, palpitations or paroxysmal nocturnal dyspnea Respiratory/Chest Respiratory/Chest: Reports cough; Denies dyspnea, dyspnea on exertion, orthopnea, paroxysmal nocturnal dyspnea or sputum Gastrointestinal Gastrointestinal: Reports abdominal pain and nausea; Denies constipation, diarrhea, melena or vomiting Genitourinary Genitourinary ED: Reports urinary frequency; Denies dysuria or hematuria Musculoskeletal Musculoskeletal: Reports other Details: Left flank pain that radiates anteriorly ; Denies arthralgias, back pain, myalgias or neck pain Neurologic Neurologic: Denies headache(s) or paresthesias Hematologic/Lymphatic Hematologic/Lymphatic: Reports systems reviewed and no addt'l complaints, except as documented EXAM Physical Exam Const Vital Signs: 12/23/23 15:22 12/23/23 15:24 Temperature 98.7 F 98.7 F Temperature Source Temporal Temporal Pulse Rate 62 62 Respiratory Rate 16 16 Blood Pressure 127/84 H 127/84 H Blood Pressure Mean 98 98 Pulse Ox 98 98 Oxygen Delivery Method Room Air Room Air Positive well nourished and well developed General Appearance ED: well developed and NAD; Negative for cyanotic, diaphoretic or pallor HEENT Reports moist mucous membranes HEENT Narrative: Head is atraumatic and normocephalic. Ears normal. Nares patent. Posterior pharynx is normal. Eyes PERRL and EOMs intact bilaterally General Eye ED: Negative for pale conjunctiva or scleral icterus Neck no lymphadenopathy, supple and no JVD Resp normal respiratory effort and clear to auscultation bilaterally Cardio regular rate, regular rhythm, S1 normal heart sound, S2 normal heart sound and no murmurs GI normal to inspection, nondistended, normoactive bowel sounds and non-distended; Negative for non-tender, hepatosplenomegaly or no masses GI Narrative: Tenderness to deep palpation over the left kidney. Back/Spine General Back: CVA tenderness left Thoracic Spine / Upper Back: Negative for thoracic spinal tenderness Lumbar Spine / Lower Back: Negative for lumbar spinal tenderness Extremity normal to inspection General Extremety ED: Negative for edema or tenderness General Extremity: Negative for edema Neuro oriented x3 and CN's II-XII intact bilaterally Sensorium / Orientation: alert Skin no rashes or lesions noted, no wounds and skin turgor normal General Skin Exam: Negative for jaundice or pallor MDM MDM MDM Narrative Medical decision making narrative: Differential diagnosis is flank pain of unknown etiology, obstructing ureteral stone, pyelonephritis, obstructing stone with infection versus other cause. CT of the abdomen without contrast was ordered. Patient is status post hysterectomy and right salpingo-oophorectomy. Therefore, test was not obtained. UA was obtained to assess for infection. CBC to assess white count differential and BMP to assess renal function. History & Record Review Additional record(s) reviewed:: Prior outpatient record (Transfer to [facility] 2018 for 9 mm obstructing stone) and Prior ED visit (Visits for migraine, COPD, compression fracture and remote past renal/ureteral stones.) Lab Data Attestation: I reviewed the patient's lab results. Lab results narrative: CBC is normal. Basic metabolic panel is unremarkable. Labs: Laboratory Results - last 24 hr 12/23/23 12/23/23 15:37 16:19 WBC 5.7 RBC 4.42 Hgb 12.9 Hct 40.0 MCV 90.5 MCH 29.2 MCHC 32.3 RDW Std Deviation 44.0 H RDW Coeff of Juanita 13.3 Plt Count 289 MPV 10.4 Immature Gran % (Auto) 0.300 Neut % (Auto) 50.9 Lymph % (Auto) 37.5 [place] % (Auto) 9.4 Eos % (Auto) 1.4 Baso % (Auto) 0.5 Absolute Neuts (auto) 2.9 Absolute Lymphs (auto) 2.15 Nucleated RBC % 0 Sodium 140 Potassium 3.8 Chloride 112 H Carbon Dioxide 25.0 Anion Gap 3 L BUN 16 Creatinine 0.74 Estim Creat Clear Calc 79.92 Est GFR (MDRD) Af Amer 104 Est GFR (MDRD) Non-Af 86 BUN/Creatinine Ratio 21.7 H Glucose 100 Calcium 9.5 Urine Color Straw Urine Clarity Clear Urine pH 6.5 Ur Specific [place] 1.010 Urine Protein Negative Urine Glucose (UA) Normal Urine Ketones Negative Urine Occult Blood Negative Urine Nitrite Negative Urine Bilirubin Negative Urine Urobilinogen Normal Ur Leukocyte Esterase Negative Urine RBC 0 SEEN Urine WBC 0 SEEN Ur Squamous Epith Cells 0 SEEN Urine Bacteria 0 SEEN Urine Mucus 0 SEEN Radiography Diagnostic Testing: Clinical Impression(s) from Imaging Studies Abdomen/Pelvis CT 12/23/23 15:30 IMPRESSION: Fecal retention. No acute abnormality. No renal stones. Electronically Signed: Isai Merrill MD at 16:22 EST , CT of the abdomen pelvis was reviewed by me. There may be small cortical punctate calcifications in the left kidney. There is no evidence of hydronephrosis or hydroureter. There is no obvious stone. Awaiting formal read by radiologist. Treatment and Re-Evaluation :: Patient was informed of her results. Plan is discharge to home with appropriate home-going instructions Discharge Plan Triage Chief Complaint: Flank Pain ED Provider: Harshil Duran Dx/Rx/DC Orders Clinical Impression: Acute left flank pain, History of kidney stones, Obstipation Instructions: ED Constipation (Adult), ED Flank Pain, Uncertain Cause Prescriptions: No Action albuterol sulfate [Ventolin HFA] 1 INHALER inhaler 2 puff inhalation Q4H PRN PRN (Reason: Wheezing) Ibuprofen [Motrin] 800 MG tablet 600 mg PO TID PRN PRN (Reason: Pain) baclofen 10 MG tablet 10 mg PO DAILY PRN (Reason: Pain) meloxicam 15 MG tablet 15 mg PO DAILY Patient Comments: hydrocodone-acetaminophen 1 TABLET tablet 1 - 2 tab PO Q4H PRN PRN (Reason: Pain) Qty: 12 0RF gabapentin 300 MG capsule 900 mg PO QHS fluticasone propionate 1 SPRAY spray,suspension 2 spray NASAL DAILY lactase [Lactaid] 3,000 UNIT tablet 3,000 unit PO TID Patient Comments: TAKE WITH ANY DAIRY PRODUCT. montelukast 10 MG tablet 10 mg PO DAILY PRN (Reason: Allergies) cholecalciferol (vitamin D3) 5,000 UNIT capsule 5,000 unit PO QWEEK mometasone-formoterol 8.8 GM HFA aerosol inhaler 1 puff IH BID tamsulosin 0.4 MG capsule 0.4 mg PO DAILY PRN (Reason: .urinary symptoms) dicyclomine 10 MG capsule 20 mg PO ACHS PRN (Reason: Anxiety) omeprazole 20 MG capsule 40 mg PO DAILY fluoxetine 20 MG capsule 20 mg PO DAILY gabapentin 100 mg capsule 100 - 200 mg PO DAILY Patient Comments: TAKE 1 CAPSULE BY MOUTH IN THE MORNING AND 2 IN THE AFTERNOON Dulera 100-5 mcg/actuation HFA aerosol inhaler 200 INHALATION BID Patient Comments: INHALE 2 PUFFS BY MOUTH INSTRUCTED TWICE DAILY doxycycline monohydrate 100 mg capsule 100 mg PO BID Qty: 20 0RF prednisone 20 mg tablet 20 mg PO BID Qty: 10 0RF oxycodone-acetaminophen [Percocet] 5-325 mg tablet 1 tab PO Q6H PRN (Reason: pain) 3 Days Qty: 12 0RF Primary Care Provider: David Swift Referrals: David Swift, [Primary Care Provider] - 3-5 Days if not improving Disposition Disposition: Home, Self Care
[2023-12-23] MEDS: 0.9% Normal Saline (1000mL) 1,000 ML 250 ML IV (15:38)
[2023-12-23] MEDS: Ketorolac 15 MG/ML Vial IV (15:38)
[2023-12-23 15:44] LABS: Absolute Lymphocyte Count 2.15 X10^3/uL (0.83-4.51); Absolute Neutrophil Count 2.9 X10^3/uL (2.0-7.7); Basophil# 0.03 X10^3/uL; Basophil% 0.5 % (0-1); Eosinophil# 0.08 X10^3/uL; Eosinophils% 1.4 % (0-5); Hemoglobin 12.9 g/dL (12.0-15.0); Lymphocyte # 2.15 X10^3/ul (0.83-4.51); Lymphocyte % 37.5 % (19-41); Mean Corp Hgb Conc 32.3 g/dL (32-36); Mean Corpuscular Hgb 29.2 pg (27.0-32.0); Mean Corpuscular Volume 90.5 fL (81-99); Mean Platelet Vol. 10.4 fl (6.2-12.0); Monocyte# 0.54 X10^3/uL; Monocyte% 9.4 % (0-10); NRBC Flagged by Analyzer 0 % (0-5); Neutrophil # 2.91 X10^3/uL (2.7-7.7); Neutrophil % 50.9 % (47-70); Platelet Count 289 K/mm3 (150-450); RBC Distribution Width CV 13.3 % (11.6-14.6); Red Blood Count 4.42 M/mm3 (4.2-5.4); White Blood Count 5.7 K/mm3 (4.4-11.0)
[2023-12-23 16:01] LABS: Anion Gap 3 (5-15); BUN 16 mg/dL (7-18); BUN/Creat Ratio 21.7 RATIO (10-20); Calcium,Total 9.5 mg/dL (8.5-10.1); Chloride 112 mmol/L (98-107); Creatinine, Serum 0.74 mg/dL (0.55-1.02); EST Glomerular Filtration Rate 86 mL/min (>60); Est Glom Filt Rate - Afr Amer 104 mL/min (>60); Estimated Creatinine Clearance 79.92 ml/min; Glucose 100 mg/dL (74-106); Potassium 3.8 mmol/L (3.5-5.1); Sodium Level 140 mmol/L (136-145)
[2023-12-23 16:25] LABS: Bacteria 0 SEEN /hpf (None Seen); Mucous, Urine 0 SEEN /hpf (<or=2+); Red Blood Cells-Urine 0 SEEN /hpf (0-5); Squamous Epithelial Cells - UA 0 SEEN /hpf (5-10); White Blood Cells 0 SEEN /hpf (0-5)
[2023-12-23 16:33] LABS: Color, Urine Straw (Yellow); Glucose, Dipstick Normal (Normal); Ketone-Dipstick Negative (Negative); Leukocyte Esterase-Dipstick Negative /ul (Negative); Nitrite-Dipstick Negative (Negative); Occult Blood-Urine Negative /ul (Negative); Protein-Dipstick Negative (Negative); Urine Bilirubin Dipstick Negative (Negative); Urine Clarity Clear (Clear); Urine Urobilinogen Normal (Normal); Urine pH 6.5 (5.0 - 8.0)
[2023-12-23 17:12] VITALS: BP 124/68; PULSE 64; RESP 16; TEMP 36.6; O2SAT 99
== END 2023-12-23 17:14 | disposition home or self-care (01) ==
PROVIDERS: Emergency Provider Emergency Medicine; PCP Student in an Organized Health Care Education/Training Program; Visit Provider Emergency Medicine
DX: R10.9 Unspecified abdominal pain (principal); K59.00 Constipation, unspecified; G47.30 Sleep apnea, unspecified; Z87.891 Personal history of nicotine dependence
CPT/HCPCS: 74176; 80048; 81001; 85025; 96374; 99283; J7030; A4216

== ENCOUNTER 2024-05-23 17:25 | Emergency (ER) | payer MEDICAID, SELFPAY ==
[2024-05-23 17:26] VITALS: BP 122/79; PULSE 71; RESP 16; TEMP 36.2; O2SAT 95; BMI 25.4
--- NOTE | 2024-05-23 18:15 | EX.ED.DYSGE1 ---
HPI History of Present Illness Chief Complaint: Foreign Body Informant: patient Narrative Narrative: Patient presents secondary to foreign body sensation in her throat. Patient states she took her evening pills last evening and felt like something got stuck in her throat. She is not sure but may have been her calcium pill. She is been able to eat and drink today without difficulty. She has no shortness of breath. She called her PCP who told her to go to urgent care. Urgent care thought she needed either endoscopy or CT scan and sent her to the emergency room. [facility] Medical History Chronic pneumonia Bronchitis Osteoporosis Sleep apnea Migraines Depression Kidney stones Asthma Hyperlipidemia Home Medications ?Medication ?Instructions ?Recorded ?Last Taken ?Type albuterol sulfate 90 mcg/actuation 2 puff inhalation Q4H PRN PRN 08/07/13 12/28/15 History aerosol inhaler (Ventolin HFA) Wheezing Ibuprofen [Motrin] 600 mg PO TID PRN PRN Pain 04/01/16 Unknown History baclofen 10 mg tablet 10 mg PO DAILY PRN Pain 08/06/16 Unknown History hydrocodone-acetaminophen 5-325mg 1 - 2 tab PO Q4H PRN PRN Pain ##12 05/06/17 Unknown Rx 5mg-325mg meloxicam 15 mg tablet 15 mg PO DAILY 05/06/17 Unknown History fluticasone propionate 50 2 spray DAILY 01/04/18 01/04/18 History mcg/actuation nasal spray,suspension gabapentin 300 mg capsule 900 mg PO QHS 01/04/18 Unknown History lactase 3,000 unit tablet (Lactaid) 3,000 unit PO TID 01/04/18 Unknown History montelukast 10 mg tablet 10 mg PO DAILY PRN Allergies 01/04/18 01/04/18 History cholecalciferol (vitamin D3) 125 5,000 unit PO QWEEK 03/09/19 Unknown History mcg (5,000 unit) capsule dicyclomine 10 mg capsule 20 mg PO ACHS PRN Anxiety 01/17/21 Unknown History fluoxetine 20 mg capsule 20 mg PO DAILY 01/17/21 Unknown History mometasone-formoterol HFA 100 1 puff IH BID 01/17/21 Unknown History mcg-5 mcg/actuation aerosol inhaler omeprazole 20 mg capsule,delayed 40 mg PO DAILY 01/17/21 Unknown History release tamsulosin 0.4 mg capsule 0.4 mg PO DAILY PRN .urinary 01/17/21 Unknown History symptoms gabapentin 100 mg capsule 100 - 200 mg PO DAILY 01/17/22 Unknown History mometasone-formoterol HFA 100 200 inhalation BID 04/01/23 Unknown History mcg-5 mcg/actuation aerosol inhaler (Dulera) doxycycline monohydrate 100 mg 100 mg PO BID #20 CAPSULES 04/02/23 Unknown Rx capsule prednisone 20 mg tablet 20 mg PO BID #10 tabs 04/02/23 Unknown Rx oxycodone-acetaminophen 5 mg-325 1 tab PO Q6H PRN pain 3 days #12 07/28/23 Unknown Rx mg tablet (Percocet) tabs Allergy/AdvReac Type Severity Reaction Status Date / Time cephalexin (From Keflex) Allergy Mild Itching Verified 05/23/24 17:26 amoxicillin trihydrate (From Allergy Rash Verified 05/23/24 17:26 Augmentin) aspirin Allergy Hives Verified 05/23/24 17:26 bismuth subsalicylate Allergy Other Verified 05/23/24 17:26 buspirone Allergy Other Verified 05/23/24 17:26 coconut Allergy Anaphylaxis Verified 05/23/24 17:26 ondansetron (From Zofran (as Allergy Hives Verified 05/23/24 17:26 hydrochloride)) Penicillins (PCN) Allergy Hives Verified 05/23/24 17:26 potassium clavulanate (From Allergy Rash Verified 05/23/24 17:26 Augmentin) Sulfa (Sulfonamide Allergy Rash Verified 05/23/24 17:26 Antibiotics) tramadol Allergy Itching Verified 05/23/24 17:26 lactose AdvReac Upset Verified 05/23/24 17:26 Stomach Surgical History History of appendectomy Social History household members: spouse Smoking Status: Former smoker substance use type: does not use ROS ROS ED Constitutional Constitutional ED: Denies chills or fever(s) Eyes Eyes: Denies discharge from eye(s) ENT ENT ED: Reports other Details: Foreign body sensation in throat ; Denies discharge from eye(s) or rhinorrhea Cardiovascular Cardiovascular: Denies chest pain or palpitations Respiratory/Chest Respiratory/Chest: Denies cough or dyspnea Musculoskeletal Musculoskeletal: Denies back pain Integumentary Denies Abrasions or rash Neurologic Neurologic: Denies headache(s) or weakness Psychiatric Psychiatric: Denies anxiety or depression Allergic/Immunologic Allergic/Immunologic ED: Denies lip swelling or urticaria EXAM Physical Exam Narrative Exam Narrative: Patient lying with head of bed elevated approximately 30 degrees. She speaks with a strong voice and is tolerating secretions well. Const Vital Signs: 05/23/24 17:26 05/23/24 17:44 Temperature 97.2 F L Temperature Source Temporal Pulse Rate 71 Respiratory Rate 16 Respiratory Pattern Normal Blood Pressure 122/79 H Blood Pressure Mean 93 Pulse Ox 95 Oxygen Delivery Method Room Air Positive well nourished and well developed General Appearance ED: well developed HEENT Reports moist mucous membranes Chest Wall inspection of chest normal and palpation of chest normal Resp normal respiratory effort and clear to auscultation bilaterally Cardio regular rate and regular rhythm GI non-tender Palpation: soft Extremity normal to inspection Neuro oriented x3 and no sensory deficits noted Motor Exam: strength 5/5 throughout Skin no rashes or lesions noted MDM MDM MDM Narrative Medical decision making narrative: Given that the calcium pill may have caused the foreign body sensation, I will obtain a soft tissue neck x-ray to look for any radiopaque foreign body. I advised the patient that it is likely that she has an abrasion to the in her pharynx. If x-ray is unremarkable I will give her a GI cocktail to help numb the area and see if that resolves her symptoms. History & Record Review Discussion w/independent historian: Patient Radiography Diagnostic Testing: Clinical Impression(s) from Imaging Studies Soft Tissue Neck X-Ray 05/23/24 18:24 IMPRESSION: No evidence of foreign body. Degenerative changes in the cervical spine are similar to the prior exam. Electronically Signed: Alejandro Fuentes DO at 18:48 EDT , Treatment and Re-Evaluation :: Soft tissue neck x-rays per my interpretation reveal no evidence of radiopaque foreign body. Radiology interpretation reviewed and agrees. Patient given a GI cocktail. She follows with Dr. Spivey and be referred to him for follow-up if not improving. I do believe she likely has an abrasion in the pharynx causing her symptoms. Discharge Plan Triage Chief Complaint: Foreign Body ED Provider: Michelle Leonard Dx/Rx/DC Orders Clinical Impression: Abrasion of pharynx Instructions: ED Pharyngeal Abrasion Prescriptions: No Action albuterol sulfate [Ventolin HFA] 1 INHALER inhaler 2 puff inhalation Q4H PRN PRN (Reason: Wheezing) Ibuprofen [Motrin] 800 MG tablet 600 mg PO TID PRN PRN (Reason: Pain) baclofen 10 MG tablet 10 mg PO DAILY PRN (Reason: Pain) meloxicam 15 MG tablet 15 mg PO DAILY Patient Comments: hydrocodone-acetaminophen 1 TABLET tablet 1 - 2 tab PO Q4H PRN PRN (Reason: Pain) Qty: 12 0RF gabapentin 300 MG capsule 900 mg PO QHS fluticasone propionate 1 SPRAY spray,suspension 2 spray NASAL DAILY lactase [Lactaid] 3,000 UNIT tablet 3,000 unit PO TID Patient Comments: TAKE WITH ANY DAIRY PRODUCT. montelukast 10 MG tablet 10 mg PO DAILY PRN (Reason: Allergies) cholecalciferol (vitamin D3) 5,000 UNIT capsule 5,000 unit PO QWEEK mometasone-formoterol 8.8 GM HFA aerosol inhaler 1 puff IH BID tamsulosin 0.4 MG capsule 0.4 mg PO DAILY PRN (Reason: .urinary symptoms) dicyclomine 10 MG capsule 20 mg PO ACHS PRN (Reason: Anxiety) omeprazole 20 MG capsule 40 mg PO DAILY fluoxetine 20 MG capsule 20 mg PO DAILY gabapentin 100 mg capsule 100 - 200 mg PO DAILY Patient Comments: TAKE 1 CAPSULE BY MOUTH IN THE MORNING AND 2 IN THE AFTERNOON Dulera 100-5 mcg/actuation HFA aerosol inhaler 200 INHALATION BID Patient Comments: INHALE 2 PUFFS BY MOUTH INSTRUCTED TWICE DAILY doxycycline monohydrate 100 mg capsule 100 mg PO BID Qty: 20 0RF prednisone 20 mg tablet 20 mg PO BID Qty: 10 0RF oxycodone-acetaminophen [Percocet] 5-325 mg tablet 1 tab PO Q6H PRN (Reason: pain) 3 Days Qty: 12 0RF Primary Care Provider: David Swift Referrals: David Swift DO [Primary Care Provider] - Javier Velasco MD [Med Staff - Active Staff] - As Needed Print Language: Citizen Of [place] Disposition Disposition: Home, Self Care
--- NOTE | 2024-05-23 18:24 | RAD_ITS ---
EXAM: XR SOFT TISSUE NECK CLINICAL INDICATION: FB sensation TECHNIQUE: Frontal and lateral views of the soft tissues of the neck. COMPARISON: Cervical spine radiographs, 04/10/2020 FINDINGS: AIRWAY: No significant abnormality. Grossly patent. No foreign body seen. BONES/JOINTS: Degenerative changes in the cervical spine is similar to the prior examination. Hypertrophy bilateral C7 transverse processes without discrete cervical ribs. SOFT TISSUES: No significant abnormality. No pathologic thickening or enlargement of the epiglottis. No evidence of foreign body. RAD/Neck for Soft Tissue IMPRESSION: No evidence of foreign body. Degenerative changes in the cervical spine are similar to the prior exam. Electronically Signed: Alejandro Fuentes DO at 18:48 EDT ,
[2024-05-23] MEDS: Mag /Aluminum/Simeth WCH UDC 30 ML ORAL.SUSP PO (19:26)
[2024-05-23] MEDS: Lidocaine 2% Viscous15 ML UDC 15 ML PO (19:26)
[2024-05-23 19:27] VITALS: BP 135/86; PULSE 56; RESP 18; TEMP 36.2; O2SAT 96
== END 2024-05-23 19:36 | disposition home or self-care (01) ==
PROVIDERS: Emergency Provider Emergency Medicine; PCP Student in an Organized Health Care Education/Training Program; Visit Provider Emergency Medicine
DX: S10.11XA Abrasion of throat, initial encounter (principal); G47.30 Sleep apnea, unspecified; Z87.891 Personal history of nicotine dependence; X58.XXXA Exposure to other specified factors, initial encounter
CPT/HCPCS: 70360; 99283

== ENCOUNTER 2024-07-11 20:43 | Emergency (ER) | payer MEDICARE, MEDICAID, SELFPAY ==
[2024-07-11 20:44] VITALS: BP 113/75; PULSE 67; RESP 18; TEMP 36.1; O2SAT 96
--- NOTE | 2024-07-11 20:48 | RAD_ITS ---
EXAM: XR RIGHT ANKLE COMPLETE, 3 OR MORE VIEWS CLINICAL INDICATION: INJURY TECHNIQUE: Frontal, lateral and oblique views of the right ankle. COMPARISON: No relevant prior studies available. FINDINGS: BONES/JOINTS: There is orthopedic plate and screws seen within the distal first metatarsal. No acute fracture. No subluxation. Normal alignment. Preservation of the joint space. No sclerotic or destructive changes observed. SOFT TISSUES: There is soft tissue swelling over the medial and lateral malleoli. No radiopaque foreign body. RAD/Ankle min 3 Views IMPRESSION: Mild soft tissue swelling with no acute osseous abnormality. Electronically Signed: Bill Hughes MD at 21:29 EDT ,
--- NOTE | 2024-07-11 21:11 | RAD_ITS ---
EXAM: XR RIGHT FOOT COMPLETE, 3 OR MORE VIEWS CLINICAL INDICATION: injury; attn: talus, calc TECHNIQUE: Frontal, lateral and oblique views of the right foot. COMPARISON: No relevant prior studies available. FINDINGS: BONES/JOINTS: There is orthopedic plate and screws across the first metatarsal phalangeal joint. No acute fracture. No subluxation. Normal alignment. No sclerotic or destructive changes observed. SOFT TISSUES: Unremarkable. No soft tissue swelling or gas. No radiopaque foreign body. RAD/Foot min 3 Views IMPRESSION: No acute findings in the right foot. Electronically Signed: Bill Hughes MD at 22:14 EDT ,
--- NOTE | 2024-07-11 21:12 | ED.VIS.LOWEX ---
HPI History of Present Illness Chief Complaint: Lower Extremity Injury Informant: patient Narrative Narrative: Patient was we walking through tall weeds, they were obstructing a hole that she did not see and accidentally stepped in with her right foot, her heel was down into the hole and her toes were up, describing a hyperdorsiflexion mechanism. Pain is laterally about the ankle as well as the calcaneus and she points to the anterior ankle in the area of the talus. She recently had a right great toe fusion, she states she does not think she injured that area it is not bothering her. She was able to bear weight on her right lower extremity after the injury, but with pain. No other injuries. [facility] Medical History Chronic pneumonia Bronchitis Osteoporosis Sleep apnea Migraines Depression Kidney stones Asthma Hyperlipidemia Home Medications ?Medication ?Instructions ?Recorded ?Last Taken ?Type albuterol sulfate 90 mcg/actuation 2 puff inhalation Q4H PRN PRN 08/07/13 12/28/15 History aerosol inhaler (Ventolin HFA) Wheezing Ibuprofen [Motrin] 600 mg PO TID PRN PRN Pain 04/01/16 Unknown History baclofen 10 mg tablet 10 mg PO DAILY PRN Pain 08/06/16 Unknown History hydrocodone-acetaminophen 5-325mg 1 - 2 tab PO Q4H PRN PRN Pain ##12 05/06/17 Unknown Rx 5mg-325mg meloxicam 15 mg tablet 15 mg PO DAILY 05/06/17 Unknown History fluticasone propionate 50 2 spray DAILY 01/04/18 01/04/18 History mcg/actuation nasal spray,suspension gabapentin 300 mg capsule 900 mg PO QHS 01/04/18 Unknown History lactase 3,000 unit tablet (Lactaid) 3,000 unit PO TID 01/04/18 Unknown History montelukast 10 mg tablet 10 mg PO DAILY PRN Allergies 01/04/18 01/04/18 History cholecalciferol (vitamin D3) 125 5,000 unit PO QWEEK 03/09/19 Unknown History mcg (5,000 unit) capsule dicyclomine 10 mg capsule 20 mg PO ACHS PRN Anxiety 01/17/21 Unknown History fluoxetine 20 mg capsule 20 mg PO DAILY 01/17/21 Unknown History mometasone-formoterol HFA 100 1 puff IH BID 01/17/21 Unknown History mcg-5 mcg/actuation aerosol inhaler omeprazole 20 mg capsule,delayed 40 mg PO DAILY 01/17/21 Unknown History release tamsulosin 0.4 mg capsule 0.4 mg PO DAILY PRN .urinary 01/17/21 Unknown History symptoms gabapentin 100 mg capsule 100 - 200 mg PO DAILY 01/17/22 Unknown History mometasone-formoterol HFA 100 200 inhalation BID 04/01/23 Unknown History mcg-5 mcg/actuation aerosol inhaler (Dulera) doxycycline monohydrate 100 mg 100 mg PO BID #20 CAPSULES 04/02/23 Unknown Rx capsule prednisone 20 mg tablet 20 mg PO BID #10 tabs 04/02/23 Unknown Rx oxycodone-acetaminophen 5 mg-325 1 tab PO Q6H PRN pain 3 days #12 07/28/23 Unknown Rx mg tablet (Percocet) tabs Allergy/AdvReac Type Severity Reaction Status Date / Time cephalexin (From Keflex) Allergy Mild Itching Verified 07/11/24 20:47 amoxicillin trihydrate (From Allergy Rash Verified 07/11/24 20:47 Augmentin) aspirin Allergy Hives Verified 07/11/24 20:47 bismuth subsalicylate Allergy Other Verified 07/11/24 20:47 buspirone Allergy Other Verified 07/11/24 20:47 coconut Allergy Anaphylaxis Verified 07/11/24 20:47 ondansetron (From Zofran (as Allergy Hives Verified 07/11/24 20:47 hydrochloride)) Penicillins (PCN) Allergy Hives Verified 07/11/24 20:47 potassium clavulanate (From Allergy Rash Verified 07/11/24 20:47 Augmentin) Sulfa (Sulfonamide Allergy Rash Verified 07/11/24 20:47 Antibiotics) tramadol Allergy Itching Verified 07/11/24 20:47 lactose AdvReac Upset Verified 07/11/24 20:47 Stomach Surgical History History of appendectomy Social History household members: spouse Smoking Status: Former smoker substance use type: does not use ROS ROS ED Constitutional Constitutional ED: Denies chills or fever(s) Musculoskeletal Musculoskeletal: Reports extremity pain; Denies neck pain Integumentary Denies Abrasions, rash or wounds Neurologic Neurologic: Denies paresthesias or weakness EXAM Physical Exam Const Vital Signs: 07/11/24 20:44 Temperature 97 F L Temperature Source Temporal Pulse Rate 67 Respiratory Rate 18 Blood Pressure 113/75 Blood Pressure Mean 87 Pulse Ox 96 Oxygen Delivery Method Room Air Positive well nourished and well developed General Appearance ED: well developed and NAD Neck full ROM and supple Back/Spine normal ROM and normal to inspection Extremity Extremity Narrative: Limited range of motion right ankle due to pain, the joint is stable with applying lateral forces on the talus. The anterior and lateral aspect of the talus are tender but exam is limited due to some swelling that is mild. The lateral malleolus is tender. The medial malleolus is nontender. There is no tenderness at the proximal fibula or the base of the fifth metatarsal or the forefoot, she has a dorsal first ray surgical incision that is healing well without signs of infection or dehiscence, and there is no tenderness in that area. Neuro oriented x3, no focal motor deficits and no sensory deficits noted Sensorium / Orientation: alert Psych mental status grossly normal and thought process normal Skin no wounds Rashes: no rashes MDM MDM MDM Narrative Medical decision making narrative: Three-view x-ray series of the right ankle were obtained and on my interpretation show no acute fracture or dislocation. I sent the patient for foot x-rays as well as calcaneus x-rays, 3 view x-ray of the foot are negative on my interpretation and 2 view x-rays of calcaneus are negative for mitral rotation. Radiology was in agreement. Patient asking for a walking boot. 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 Radiography Diagnostic Testing: Clinical Impression(s) from Imaging Studies Ankle X-Ray 07/11/24 20:48 IMPRESSION: Mild soft tissue swelling with no acute osseous abnormality. Electronically Signed: Bill Hughes MD at 21:29 EDT , Foot X-Ray 07/11/24 21:11 IMPRESSION: No acute findings in the right foot. Electronically Signed: Bill Hughes MD at 22:14 EDT , Os Calcis X-ray 07/11/24 21:30 IMPRESSION: Negative right calcaneus x-rays. Electronically Signed: Bill Hughes MD at 22:19 EDT , Discharge Plan Triage Chief Complaint: Lower Extremity Injury ED Provider: Carlos Singh Dx/Rx/DC Orders Clinical Impression: Right ankle sprain Instructions: ED Ankle Sprain (Adult) Prescriptions: No Action albuterol sulfate [Ventolin HFA] 1 INHALER inhaler 2 puff inhalation Q4H PRN PRN (Reason: Wheezing) Ibuprofen [Motrin] 800 MG tablet 600 mg PO TID PRN PRN (Reason: Pain) baclofen 10 MG tablet 10 mg PO DAILY PRN (Reason: Pain) meloxicam 15 MG tablet 15 mg PO DAILY Patient Comments: hydrocodone-acetaminophen 1 TABLET tablet 1 - 2 tab PO Q4H PRN PRN (Reason: Pain) Qty: 12 0RF gabapentin 300 MG capsule 900 mg PO QHS fluticasone propionate 1 SPRAY spray,suspension 2 spray NASAL DAILY lactase [Lactaid] 3,000 UNIT tablet 3,000 unit PO TID Patient Comments: TAKE WITH ANY DAIRY PRODUCT. montelukast 10 MG tablet 10 mg PO DAILY PRN (Reason: Allergies) cholecalciferol (vitamin D3) 5,000 UNIT capsule 5,000 unit PO QWEEK mometasone-formoterol 8.8 GM HFA aerosol inhaler 1 puff IH BID tamsulosin 0.4 MG capsule 0.4 mg PO DAILY PRN (Reason: .urinary symptoms) dicyclomine 10 MG capsule 20 mg PO ACHS PRN (Reason: Anxiety) omeprazole 20 MG capsule 40 mg PO DAILY fluoxetine 20 MG capsule 20 mg PO DAILY gabapentin 100 mg capsule 100 - 200 mg PO DAILY Patient Comments: TAKE 1 CAPSULE BY MOUTH IN THE MORNING AND 2 IN THE AFTERNOON Dulera 100-5 mcg/actuation HFA aerosol inhaler 200 INHALATION BID Patient Comments: INHALE 2 PUFFS BY MOUTH INSTRUCTED TWICE DAILY doxycycline monohydrate 100 mg capsule 100 mg PO BID Qty: 20 0RF prednisone 20 mg tablet 20 mg PO BID Qty: 10 0RF oxycodone-acetaminophen [Percocet] 5-325 mg tablet 1 tab PO Q6H PRN (Reason: pain) 3 Days Qty: 12 0RF Primary Care Provider: David Swift Referrals: David Swift DO [Primary Care Provider] - Troy Downs DPM [Med Staff - Active Staff] - 1 Week if not improving Print Language: Andorran Disposition Disposition: Home, Self Care
--- NOTE | 2024-07-11 21:30 | RAD_ITS ---
EXAM: XR RIGHT CALCANEUS, 2 OR MORE VIEWS CLINICAL INDICATION: injury TECHNIQUE: Lateral and plantar views of the right calcaneus. COMPARISON: No relevant prior studies available. FINDINGS: BONES/JOINTS: Unremarkable. No acute fracture. No subluxation. Normal alignment. Preservation of the joint space. No sclerotic or destructive changes observed. SOFT TISSUES: Unremarkable. No soft tissue swelling or gas. No radiopaque foreign body. RAD/Calcaneus min 2 Views IMPRESSION: Negative right calcaneus x-rays. Electronically Signed: Bill Hughes MD at 22:19 EDT ,
[2024-07-11 22:31] VITALS: BP 133/88; PULSE 78; RESP 17; TEMP 36.7; O2SAT 98
== END 2024-07-11 22:31 | disposition home or self-care (01) ==
PROVIDERS: Emergency Provider Emergency Medicine; PCP Student in an Organized Health Care Education/Training Program; Visit Provider Emergency Medicine
DX: S93.401A Sprain of unspecified ligament of right ankle, initial encounter (principal); E78.5 Hyperlipidemia, unspecified; Z87.891 Personal history of nicotine dependence; X58.XXXA Exposure to other specified factors, initial encounter; Y93.01 Activity, walking, marching and hiking; J45.909 Unspecified asthma, uncomplicated; Z79.51 Long term (current) use of inhaled steroids; F32.A Depression, unspecified; Z90.49 Acquired absence of other specified parts of digestive tract
CPT/HCPCS: 73610; 73630; 73650; 99283

== ENCOUNTER 2024-12-22 21:35 | Emergency (ER) | payer MEDICARE, SELFPAY ==
[2024-12-22 21:35] VITALS: BP 125/79; PULSE 92; RESP 22; TEMP 36.6; O2SAT 99; BMI 25.7
--- NOTE | 2024-12-22 21:38 | EKG12_ITS ---
Test Reason : DYSRHYTHMIA Blood Pressure : */* mmHG Vent. Rate : 77 BPM Atrial Rate : 77 BPM P-R Int : 146 ms QRS Dur : 80 ms QT Int : 384 ms P-R-T Axes : 53 -21 -3 degrees QTcB Int : 434 ms Normal sinus rhythm Nonspecific ST and T wave abnormality Abnormal ECG Confirmed by Billy Dietz ([id number]), editor index DEJON CLARKE ([id number]) on 12/25/2024 9:59:25 AM Referred By: Confirmed By: Billy Dietz
--- NOTE | 2024-12-22 22:14 | RAD_ITS ---
PROCEDURE: CHEST 1 VIEW (PORTABLE) REASON FOR EXAM: 59-year-old female, chest pain and cough. TECHNIQUE: Frontal view of the chest. COMPARISON: Chest radiograph 04/01/2023. FINDINGS: The heart size is normal. No focal consolidation, pleural effusion or pneumothorax. The bones are unremarkable. RAD/Chest 1 View (Portable) IMPRESSION: NEGATIVE CHEST. Reading Location: [id number]
[2024-12-22 23:05] LABS: Absolute Lymphocyte Count 1.52 X10^3/uL (0.83-4.51); Absolute Neutrophil Count 2.8 X10^3/uL (2.0-7.7); Basophil# 0.04 X10^3/uL; Basophil% 0.8 % (0-1); Eosinophil# 0.22 X10^3/uL; Eosinophils% 4.3 % (0-5); Hematocrit 38.6 % (37-47); Lymphocyte # 1.52 X10^3/ul (0.83-4.51); Lymphocyte % 29.5 % (19-41); Mean Corp Hgb Conc 33.7 g/dL (32-36); Mean Corpuscular Hgb 30.2 pg (27.0-32.0); Mean Corpuscular Volume 89.6 fL (81-99); Monocyte# 0.58 X10^3/uL; Monocyte% 11.3 % (0-10); NRBC Flagged by Analyzer 0 % (0-5); Neutrophil # 2.79 X10^3/uL (2.7-7.7); Neutrophil % 54.1 % (47-70); Platelet Count 261 K/mm3 (150-450); RBC Distribution Width CV 13.1 % (11.6-14.6); RBC Distribution Width SD 42.8 fl (35.1-43.9); Red Blood Count 4.31 M/mm3 (4.2-5.4); White Blood Count 5.2 K/mm3 (4.4-11.0)
[2024-12-22 23:24] LABS: Anion Gap 5 (5-15); BUN 10 mg/dL (7-18); BUN/Creat Ratio 13.3 RATIO (10-20); Calcium,Total 9.3 mg/dL (8.5-10.1); Chloride 106 mmol/L (98-107); Creatinine, Serum 0.75 mg/dL (0.55-1.02); EST Glomerular Filtration Rate 85 mL/min (>60); Est Glom Filt Rate - Afr Amer 102 mL/min (>60); Estimated Creatinine Clearance 78.34 ml/min; Glucose 100 mg/dL (74-106); Potassium 3.4 mmol/L (3.5-5.1); Sodium Level 139 mmol/L (136-145); Troponin-I HS (w/2H Reflex) < 3 pg/mL (3.0-54.0)
[2024-12-23] VITALS: BP 116/86; PULSE 75; RESP 22; O2SAT 95
--- NOTE | 2024-12-23 00:23 | EDS_ITS ---
HPI History of Present Illness Chief Complaint: Chest Pain Informant: patient Narrative Narrative: Patient is a 59-year-old female with past medical history of asthma migraine headache hyperlipidemia and depression. She states she has been caring for her granddaughter who is just 1 to 2 months old and was recently diagnosed with RSV. She states she has had congestion cough and shortness of breath sensation for approximately 5 to 7 days with a heavy sensation in her chest over the last 2 to 3 days. She states she is unsure if this is cardiac in nature or potential pneumonia and with this concern presents for evaluation [facility] Medical History Chronic pneumonia Bronchitis Osteoporosis Sleep apnea Migraines Depression Kidney stones Asthma Hyperlipidemia Home Medications ?Medication ?Instructions ?Recorded ?Last Taken ?Type albuterol sulfate 90 mcg/actuation 2 puff inhalation Q 4H PRN PRN 08/07/13 12/28/15 History aerosol inhaler (Ventolin HFA) Wheezing Ibuprofen [Motrin] 600 mg PO TID PRN PRN Pain 0 04/01/16 Unknown History baclofen 10 mg tablet 10 mg PO DAILY PRN Pain 04/16 Unknown History hydrocodone-acetaminophen 5-325mg 1 - 2 tab PO Q4H PRN PRN Pain ##12 05/06/17 Unknown Rx 5mg-325mg meloxicam 15 mg tablet 15 mg PO DAILY 05/06/17 Unkn own History fluticasone propionate 50 2 spray DAILY 01/04/1801/04 History mcg/actuation nasal spray,suspension gabapentin 300 mg capsule 900 mg PO QHS 01/04/18 Unkno wn History lactase 3,000 unit tablet (Lactaid) 3,000 unit PO TID 01/04/18 Unknown History montelukast 10 mg tablet 10 mg PO DAILY PRN Allergies 01/04/18 01/04/18 History cholecalciferol (vitamin D3) 125 5,000 unit PO QWEEK 0 03/09/19 Unknown History mcg (5,000 unit) capsule dicyclomine 10 mg capsule 20 mg PO ACHS PRN belly 12/30 07/22 Unknown History fluoxetine 20 mg capsule 40 mg PO DAILY 01/17/21 Unkn own History mometasone-formoterol HFA 100 1 puff IH BID 01/17/21 U nknown History mcg-5 mcg/actuation aerosol inhaler omeprazole 20 mg capsule,delayed 40 mg PO DAILY Unknown History release tamsulosin 0.4 mg capsule 0.4 mg PO DAILY PRN .urinary 01/17/21 Unknown History symptoms gabapentin 100 mg capsule 100 - 200 mg PO DAILY Unknown History mometasone-formoterol HFA 100 2 inh inhalation BID 11/23 Unknown History mcg-5 mcg/actuation aerosol inhaler (Dulera) doxycycline monohydrate 100 mg 100 mg PO BID #20 CAPSU LES 04/02/23 Unknown Rx capsule oxycodone-acetaminophen 5 mg-325 1 tab PO Q6H PRN pain 3 days #12 07/28/23 Unknown Rx mg tablet (Percocet) tabs azelastine 137 mcg (0.1 %) nasal 1 spray intranasal BI D 12/23/24 Unknown History spray benzonatate 100 mg capsule 100 mg PO TID PRN PRN cough 12/23/24 Unknown History buspirone 5 mg tablet 5 mg PO TID 12/23/24 Unknown History calcium 600 mg (as 1 tab PO BID 12/23/24 Unknow n History carbonate)-vitamin D3 10 mcg (400 unit) tablet codeine 10 mg-guaifenesin 100 mg/5 10 ml PO 4X/DAY PRN cold symptoms 12/23/24 Unknown Rx mL oral liquid (Guaifenesin AC) 7 days #280 mL cyanocobalamin (vitamin B-12) 2,000 mcg PO DAILY 12/23 Unknown History 1,000 mcg tablet (Vitamin B-12) esomeprazole magnesium 40 mg 40 mg PO 12/23/24 Unknown History capsule,delayed release fluoxetine 10 mg capsule 10 mg PO DAILY 12/23/24 Unkn own History prednisone 20 mg tablet 20 mg PO BID PRN sob and fla re ups 12/23/24 Unknown History Allergy/AdvReac Type Severity Reaction Status Date / Time cephalexin (From Keflex) Allergy Mild Itching Verified 07/11/24 20:47 amoxicillin trihydrate (From Allergy Rash Verified 07/11/24 20:47 Augmentin) aspirin Allergy Hives Verified 07/11/24 20:47 bismuth subsalicylate Allergy Other Verified 07/11/24 20:47 buspirone Allergy Other Verified 07/11/24 20:47 coconut Allergy Anaphylaxis Verified 07/11/24 20:47 ondansetron (From Zofran (as Allergy Hives Verified 07/11/24 20:47 hydrochloride)) Penicillins (PCN) Allergy Hives Verified 07/11/24 20:47 potassium clavulanate (From Allergy Rash Verified 07/11/24 20:47 Augmentin) Sulfa (Sulfonamide Allergy Rash Verified 07/11/24 20:47 Antibiotics) tramadol Allergy Itching Verified 07/11/24 20:47 lactose AdvReac Upset Verified 07/11/24 20:47 Stomach Surgical History History of appendectomy Social History household members: spouse Smoking Status: Former smoker substance use type: does not use ROS ROS ED Constitutional Constitutional ED: Reports chills, fever(s) and subjective Eyes Eyes: Denies change in vision ENT ENT ED: Reports rhinorrhea and sore throat Cardiovascular Cardiovascular: Reports chest pain Respiratory/Chest Respiratory/Chest: Reports cough and dyspnea Gastrointestinal Gastrointestinal: Denies abdominal pain, diarrhea, nausea or vomiting Genitourinary Genitourinary ED: Denies dysuria Musculoskeletal Musculoskeletal: Denies back pain or myalgias Integumentary Denies rash Neurologic Neurologic: Denies headache(s) Hematologic/Lymphatic Hematologic/Lymphatic: Denies easy bleeding or easy bruising EXAM Physical Exam Const Vital Signs: 12/22/24 21:35 12/22/24 23:59 12/23/24 00:00 Temperature 97.9 F Temperature Source Temporal Pulse Rate 92 75 Respiratory Rate 22 H 22 H Respiratory Effort Blood Pressure 125/79 H 116/86 H Blood Pressure Mean 94 96 Pulse Ox 99 95 Oxygen Delivery Method Room Air Room Air Room Air 12/23/24 00:03 12/23/24 01:10 Temperature 98.0 F Temperature Source Pulse Rate 80 Respiratory Rate 18 Respiratory Effort Normal Non-Labored Blood Pressure 118/76 Blood Pressure Mean 90 Pulse Ox 97 Oxygen Delivery Method Positive well nourished and well developed General Appearance ED: well developed; Negative for pallor HEENT HEENT Narrative: No tongue or lip swelling no oral lesions no airway edema or compromise Bilateral TMs are retracted but show no secondary changes to suggest infection There is cobblestoning the posterior pharynx consistent with sinus drainage Eyes PERRL and EOMs intact bilaterally General Eye ED: Negative for scleral icterus Neck supple and no JVD Neck Narrative: No nuchal rigidity or meningeal signs noted Chest Wall Chest Narrative: There is reproducible pain with palpation of the anterior chest wall without bony deformity or subcutaneous emphysema Resp normal respiratory effort Resp Narrative: Breath sounds are diminished throughout with faint expiratory wheeze but no nasal flaring retractions or accessory muscle use Cardio regular rate and regular rhythm Rate: other Other Details: Radial and carotid pulses are equal and symmetric GI normal to inspection, nondistended, normoactive bowel sounds, non-tender, non- distended and no masses Auscultation: normoactive bowel sounds Palpation: soft Extremity normal to inspection Extremity Narrative: No asymmetric edema no pitting edema negative Homans' sign bilaterally Neuro oriented x3, CN's II-XII intact bilaterally and no sensory deficits noted Sensorium / Orientation: alert Motor Exam: strength 5/5 throughout Psych mental status grossly normal Skin no rashes or lesions noted General Skin Exam: Negative for jaundice or pallor MDM MDM MDM Narrative Medical decision making narrative: Patient arrived to the ER in no acute respiratory distress with overall stable vitals. Her constellation of symptoms is most consistent with viral infection such as COVID versus influenza versus RSV. However with her report of chest pain there is concern she may have developed pneumonia pneumothorax or have acute coronary syndrome. Secondary to this a chest x-ray was obtained as well as basic blood work and viral swab. Labs showed a troponin less than 3 going against ACS and otherwise there is no clinically significant lab abnormality. Chest x-ray revealed no acute lung pathology such as pneumonia or pneumothorax. Viral swab was positive for RSV which correlates with her exposure. Therefore at this time with overall negative workup and x-ray showing no signs of pneumonia or pneumothorax this is most likely musculoskeletal pain secondary to her coughing and her viral infection but with low concern for ACS and no need for supplemental oxygen there is no need for admission and she is otherwise safe for discharge History & Record Review Discussion w/independent historian: Patient Lab Data Attestation: I reviewed the patient's lab results. Labs: Laboratory Results - last 24 hr 12/22/24 23:00 WBC 5.2 RBC 4.31 Hgb 13.0 Hct 38.6 MCV 89.6 MCH 30.2 MCHC 33.7 RDW Std Deviation 42.8 RDW Coeff of Juanita 13.1 Plt Count 261 MPV 10.0 Immature Gran % (Auto) 0.000 Neut % (Auto) 54.1 Lymph % (Auto) 29.5 [place]well % (Auto) 11.3 H Eos % (Auto) 4.3 Baso % (Auto) 0.8 Absolute Neuts (auto) 2.8 Absolute Lymphs (auto) 1.52 Nucleated RBC % 0 Sodium 139 Potassium 3.4 L Chloride 106 Carbon Dioxide 28.0 Anion Gap 5 BUN 10 Creatinine 0.75 Estim Creat Clear Calc 78.34 Est GFR (MDRD) Af Amer 102 Est GFR (MDRD) Non-Af 85 BUN/Creatinine Ratio 13.3 Glucose 100 Calcium 9.3 Troponin I High Sens < 3 L Radiography Diagnostic Testing: Clinical Impression(s) from Imaging Studies Chest X-Ray 12/22/24 22:14 IMPRESSION: NEGATIVE CHEST. Reading Location: [facility] Chest x-ray as interpreted by the emergency medicine physician reveals no acute infiltrate pneumothorax or pleural effusion Discharge Plan Triage Chief Complaint: Chest Pain Other Complaint: Cold Sx ED Provider: Ricardo Looney Dx/Rx/DC Orders Clinical Impression: RSV infection, History of asthma Instructions: RSV (Respiratory Syncytial Virus) Prescriptions: New codeine-guaifenesin [Guaifenesin AC] 10-100 mg/5 mL liquid 10 ml PO 4X/DAY PRN (Reason: cold symptoms) 7 Days Qty: 280 0RF No Action albuterol sulfate [Ventolin HFA] 1 INHALER inhaler 2 puff inhalation Q4H PRN PRN (Reason: Wheezing) Ibuprofen [Motrin] 800 MG tablet 600 mg PO TID PRN PRN (Reason: Pain) baclofen 10 MG tablet 10 mg PO DAILY PRN (Reason: Pain) meloxicam 15 MG tablet 15 mg PO DAILY Patient Comments: hydrocodone-acetaminophen 1 TABLET tablet 1 - 2 tab PO Q4H PRN PRN (Reason: Pain) Qty: 12 0RF gabapentin 300 MG capsule 900 mg PO QHS fluticasone propionate 1 SPRAY spray,suspension 2 spray NASAL DAILY lactase [Lactaid] 3,000 UNIT tablet 3,000 unit PO TID Patient Comments: TAKE WITH ANY DAIRY PRODUCT. montelukast 10 MG tablet 10 mg PO DAILY PRN (Reason: Allergies) cholecalciferol (vitamin D3) 5,000 UNIT capsule 5,000 unit PO QWEEK mometasone-formoterol 8.8 GM HFA aerosol inhaler 1 puff IH BID tamsulosin 0.4 MG capsule 0.4 mg PO DAILY PRN (Reason: .urinary symptoms) dicyclomine 10 MG capsule 20 mg PO ACHS PRN (Reason: belly) omeprazole 20 MG capsule 40 mg PO DAILY fluoxetine 20 MG capsule 40 mg PO DAILY gabapentin 100 mg capsule 100 - 200 mg PO DAILY Patient Comments: TAKE 1 CAPSULE BY MOUTH IN THE MORNING AND 2 IN THE AFTERNOON Dulera 100-5 mcg/actuation HFA aerosol inhaler 2 inh INHALATION BID Patient Comments: INHALE 2 PUFFS BY MOUTH INSTRUCTED TWICE DAILY doxycycline monohydrate 100 mg capsule 100 mg PO BID Qty: 20 0RF oxycodone-acetaminophen [Percocet] 5-325 mg tablet 1 tab PO Q6H PRN (Reason: pain) 3 Days Qty: 12 0RF fluoxetine 10 mg capsule 10 mg PO DAILY calcium carbonate-vitamin D3 600 mg-10 mcg (400 unit) tablet 1 tab PO BID buspirone 5 mg tablet 5 mg PO TID prednisone 20 mg tablet 20 mg PO BID PRN (Reason: sob and flare ups) cyanocobalamin (vitamin B-12) [Vitamin B-12] 1,000 mcg tablet 2,000 mcg PO DAILY benzonatate 100 mg capsule 100 mg PO TID PRN PRN (Reason: cough) esomeprazole magnesium 40 mg capsule,delayed release(DR/EC) 40 mg PO azelastine 137 mcg (0.1 %) spray,non-aerosol 1 spray INTRANASAL BID Primary Care Provider: David Swift Referrals: David Swift DO [Primary Care Provider] - Activity Restrictions/Additional Instructions: Please continue all of your home medications as you have been doing and add 20 mg of prednisone daily for the next 5 days to help with inflammation from your RSV infection. Return to the ER should you have any further concerns Print Language: Vietnamese Disposition Disposition: Home, Self Care Discharge Date/Time: 12/23/24 01:11
[2024-12-23 01:02] LABS: Reflex Troponin-HS? (from REC) Y
[2024-12-23 01:10] VITALS: BP 118/76; PULSE 80; RESP 18; TEMP 36.7; O2SAT 97
== END 2024-12-23 01:11 | disposition home or self-care (01) ==
LOC: ED 12-23 00:40
PROVIDERS: Emergency Provider Emergency Medicine; PCP Student in an Organized Health Care Education/Training Program; Visit Provider Emergency Medicine
DX: J06.9 Acute upper respiratory infection, unspecified (principal); B97.4 Respiratory syncytial virus as the cause of diseases classified elsewhere; E78.5 Hyperlipidemia, unspecified; F32.A Depression, unspecified; M81.0 Age-related osteoporosis without current pathological fracture; J45.909 Unspecified asthma, uncomplicated; G43.909 Migraine, unspecified, not intractable, without status migrainosus; Z88.0 Allergy status to penicillin; Z88.2 Allergy status to sulfonamides; Z88.1 Allergy status to other antibiotic agents; Z79.899 Other long term (current) drug therapy; Z87.891 Personal history of nicotine dependence
CPT/HCPCS: 71045; 80048; 84484; 85025; 87631; 93005; 99285; A4216